=== PATIENT | male | born 1960 | race African-American/Black ===

== ENCOUNTER 2016-05-07 17:29 | Inpatient (IN) | payer MEDICAID ==
[~2016-05-07] VITALS: Ht 170.2 cm; Wt 92.1 kg
[~2016-05-07 17:29] MED LIST: AMLODIPINE BESY10 MG ORAL; AMLODIPINE BESYL5 MG ORAL; ASPIRIN EC81 MG ORAL; BACTRIM SINGLE S1 EA ORAL; CEPHALEXIN500 MG ORAL; CIPRO500 MG PO; CLINDAMYCIN HC300 MG ORAL; FLOMAX0.4 MG ORAL; HYDROCHLOROTHIA25 MG ORAL; HYDROCORTISON28.4 G2 TP; IBUPROFEN600 MG ORAL; KEFLEX500 MG ORAL; METRONIDAZOLE500 MG ORAL; PROSCAR5 MG PO; TERAZOSIN HCL10 MG PO; [UNRECOGNIZED DRUG - REMARK] PO; flomax
[2016-05-07 18:00] VITALS: BP 197/141
[2016-05-07] MEDS ORDERED: Norco 7.5mg/325mg tab ORAL ONE (18:15)
[2016-05-07] MEDS ORDERED: Bicillin LA 2,400,000 units IM ONE (18:30)
[2016-05-07] MEDS ORDERED: Morphine Sulfate 2mg/ml Inj IVP ONE (21:15)
[2016-05-07 21:16] VITALS: BP 188/127
[2016-05-07 21:17] LABS: BASOPHILS % (AUTO) 2.8 % (0.0-2.0); EOSINOPHILS % (AUTO) 1.8 % (0.0-3.0); LYMPHOCYTES % (AUTO) 20.6 % (20.0-45.0); MEAN CORPUSCULAR HEMOGLOBIN 25.2 PG (27.0-31.0); MEAN CORPUSCULAR VOLUME 81 FL (80-99); MEAN PLATELET VOLUME 7.5 FL (6.5-10.1); MONOCYTES % (AUTO) 9.2 % (1.0-10.0); NEUTROPHILS % (AUTO) 65.6 % (45.0-75.0); PLATELET COUNT 306 K/UL (150-450); RED CELL DISTRIBUTION WIDTH 14.1 % (11.6-14.8); WHITE BLOOD COUNT 13.1 K/UL (4.8-10.8)
[2016-05-07 21:37] LABS: GLOMERULAR FILTRATION RATE 41.9 mL/min (>60); POTASSIUM 3.3 mEQ/L (3.4-4.9); TOTAL PROTEIN 8.4 g/dL (6.6-8.7)
[2016-05-07] MEDS ORDERED: Labetalol 5mg/ml 20ml vial IV ONE (21:45)
--- NOTE | 2016-05-07 21:49 | Emergency Room Report ---
History of Present Illness General Chief Complaint: Toothache Source: Patient (BASIA CUMMINGS) Present Illness HPI The patient is a 56-year-old male presenting with left lower toothache which began 2 days prior. The patient states that he has had multiple dental infections in the past and this feels similar. It is described as a 10 out of 10 dull ache and radiates to the L jaw. Pain worse with chewing. The patient has taken Motrin at home without any relief. Patient denies any other symptoms including N, V, F, chills, [place], dizziness, blurred vision, CP, SOB, abd pain The patient also admits to hypertension but has not been taking his medications for the past week because he ran out. Patient unsure of which medications he is taking (BASIA CUMMINGS) Allergies: Coded Allergies: No Known Allergies (Unverified , 12/23/11) Patient History Past Medical History: see triage record, HTN Pertinent Family History: none Reviewed Nursing Documentation: PMH: Agreed, PSxH: Agreed (BASIA CUMMINGS) Social History: Reports: smoking (Sandoval Washburn M.D.) Nursing Documentation-PMH Past Medical History: No History, Except For Hx Cardiac Problems: No Hx Hypertension: Yes Hx Pacemaker: No Hx Asthma: No Hx COPD: No Hx Diabetes: No Hx Cancer: No Hx Gastrointestinal Problems: No - Prostate problem - RESOLVED Hx Dialysis: No Hx Neurological Problems: No Hx Cerebrovascular Accident: No Hx Seizures: No (BASIA CUMMINGS) Review of Systems All Other Systems: negative except mentioned in HPI (BASIA CUMMINGS) Physical Exam Vital Signs Date Time Temp Pulse Resp B/P Pulse Ox O2 Delivery O2 Flow Rate FiO2 05/07/16 17:48 97.9 102 18 221/150 99 Room Air Sp02 EP Interpretation: reviewed, normal General Appearance: alert, GCS 15, non-toxic, mild distress Head: normocephalic, atraumatic Eyes: bilateral eye PERRL, bilateral eye normal inspection ENT: normal pharynx, no angioedema, normal voice, uvula midline, moist mucus membranes, other - Poor dentition. TTP over L lower premolar. No surrounding erythema. No fluctuance. No facial edema Neck: full range of motion, supple/symm/no masses Respiratory: chest non-tender, lungs clear, normal breath sounds, speaking full sentences Cardiovascular #1: no edema, normal capillary refill, tachycardia Cardiovascular #2: 2+ carotid (R), 2+ carotid (L), 2+ radial (R), 2+ radial (L) , 2+ dorsalis pedis (R), 2+ dorsalis pedis (L) Gastrointestinal: normal bowel sounds, non tender, soft, non-distended, no guarding, no rebound Musculoskeletal: back normal, gait/station normal, normal range of motion, non- tender Neurologic: alert, oriented x3, responsive, motor strength/tone normal, sensory intact, speech normal Psychiatric: judgement/insight normal, memory normal, mood/affect normal, no suicidal/homicidal ideation Skin: normal color, no rash, warm/dry, well hydrated Lymphatic: no adenopathy (BASIA CUMMINSG P.AElyssa) Medical Decision Making PA Attestation Dr. Washburn is my supervising physician. Patient management was discussed with my supervising physician (BASIA CUMMINGS P.AElyssa) Diagnostic Impression: Primary Impression: Hypertensive urgency Additional Impressions: Renal insufficiency Tooth ache ER Course The patient is a 56-year-old male presenting with left lower toothache which began 2 days prior. Pt also noncompliant with HTN medication Diagnoses considered but not limited to: Dental caries, dental abscess, toothache, gingivitis, HTN urgency/emergency, ACS PE: Significant HTN and patient also tachycardic. Mild distress. Poor dentition. TTP over L lower premolar. No surrounding erythema. No fluctuance. No facial edema The patient has a BP of 220/150. The patient is given a total of 0.2 mg of clonidine and blood pressure is still 210/140. Pt given hydralazine without significant reduction of BP. Pt now given Labetaolol and will be admitted for HTN emergency. Labs: CBC: no anemia. Mild leukocytosis CMP: Cr elevated to 2.0. Otherwise unremarkable. CKMB and Troponin WNL EKG shows inferolateral ischemia. Pt initially given norco for pain with some relief. Pain has returned and pt given morphine. Pt will be admitted in stable yet serious condition. Dr. Washburn has discussed case with admitting physician. Laboratory Tests Test 05/07/16 21:00 05/08/16 06:40 White Blood Count 13.1 K/UL (4.8-10.8) H 13.3 K/UL (4.8-10.8) H Red Blood Count 5.70 M/UL (4.70-6.10) 5.81 M/UL (4.70-6.10) Hemoglobin 14.3 G/DL (14.2-18.0) 14.7 G/DL (14.2-18.0) Hematocrit 46.2 % (42.0-52.0) 45.6 % (42.0-52.0) Mean Corpuscular Volume 81 FL (80-99) 78 FL (80-99) L Mean Corpuscular Hemoglobin 25.2 PG (27.0-31.0) L 25.3 PG (27.0-31.0) L Mean Corpuscular Hemoglobin Concent 31.0 G/DL (32.0-36.0) L 32.3 G/DL (32.0-36.0) Red Cell Distribution Width 14.1 % (11.6-14.8) 13.9 % (11.6-14.8) Platelet Count 306 K/UL (150-450) 343 K/UL (150-450) Mean Platelet Volume 7.5 FL (6.5-10.1) 7.0 FL (6.5-10.1) Neutrophils (%) (Auto) 65.6 % (45.0-75.0) 73.3 % (45.0-75.0) Lymphocytes (%) (Auto) 20.6 % (20.0-45.0) 14.5 % (20.0-45.0) L Monocytes (%) (Auto) 9.2 % (1.0-10.0) 9.6 % (1.0-10.0) Eosinophils (%) (Auto) 1.8 % (0.0-3.0) 0.2 % (0.0-3.0) Basophils (%) (Auto) 2.8 % (0.0-2.0) H 2.4 % (0.0-2.0) H Sodium Level 139 mEQ/L (135-145) Potassium Level 3.3 mEQ/L (3.4-4.9) L Chloride Level 96 mEQ/L (98-107) L Carbon Dioxide Level 29 mEQ/L (20-30) Anion Gap 14 (5-15) Blood Urea Nitrogen 16 mg/dL (7-23) Creatinine 2.0 mg/dL (0.7-1.2) H Estimate Glomerular Filtration Rate 41.9 mL/min (>60) Glucose Level 107 mg/dL (74-106) H Calcium Level 9.0 mg/dL (8.6-10.2) Total Bilirubin 0.3 mg/dL (0.0-1.2) Aspartate Amino Transferase (AST) 15 U/L (5-40) Alanine Aminotransferase (ALT) 15 U/L (3-41) Alkaline Phosphatase 84 U/L (40-129) Total Creatine Kinase 263 U/L (38-174) H Creatine Kinase MB 3.0 ng/mL (< 6.7) Creatine Kinase MB Relative Index 1.1 Troponin I < 0.30 ng/mL (<=0.30) < 0.30 ng/mL (<=0.30) Total Protein 8.4 g/dL (6.6-8.7) Albumin 4.2 g/dL (3.5-5.2) Globulin 4.2 g/dL Albumin/Globulin Ratio 1.0 (1.0-2.7) Prothrombin Time 10.7 SEC (9.30-11.50) Prothrombin Time INR 1.1 (0.9-1.1) PTT 31 SEC (23-33) C-Reactive Protein, Quantitative 3.4 mg/dL (< 0.5) H Triglycerides Level 141 mg/dL (< 150) Cholesterol Level 252 mg/dL (< 200) H LDL Cholesterol 178 mg/dL (60-99) H HDL Cholesterol 46 mg/dL (> 60) Cholesterol/HDL Ratio 5.5 (3.3-4.4) H Thyroid Stimulating Hormone (TSH) 0.831 uIU/mL (0.300-4.500) Lab Results Impression CBC: no anemia. Mild leukocytosis CMP: Cr elevated to 2.0. Otherwise unremarkable. CKMB and Troponin WNL (BASIA CUMMINGS.Micky.) ER Course Please see the history and physical by Mr. Cummings. The patient was examined by me. We discussed this patient's treatment. The tooth ache is better, however, the blood pressure is critically high. Patient with hypertensive urgency needing to have urgent control of blood pressure. Labs with renal insufficiency. I reviewed the x-ray and agree with MrElyssa Cummings's impression - large bulla RUL. Admit telemetry Dr. Mane. Patient continued to need aggressive treatment of BP in ED (see my orders). Laboratory Tests Test 05/07/16 21:00 White Blood Count 13.1 K/UL (4.8-10.8) H Red Blood Count 5.70 M/UL (4.70-6.10) Hemoglobin 14.3 G/DL (14.2-18.0) Hematocrit 46.2 % (42.0-52.0) Mean Corpuscular Volume 81 FL (80-99) Mean Corpuscular Hemoglobin 25.2 PG (27.0-31.0) L Mean Corpuscular Hemoglobin Concent 31.0 G/DL (32.0-36.0) L Red Cell Distribution Width 14.1 % (11.6-14.8) Platelet Count 306 K/UL (150-450) Mean Platelet Volume 7.5 FL (6.5-10.1) Neutrophils (%) (Auto) 65.6 % (45.0-75.0) Lymphocytes (%) (Auto) 20.6 % (20.0-45.0) Monocytes (%) (Auto) 9.2 % (1.0-10.0) Eosinophils (%) (Auto) 1.8 % (0.0-3.0) Basophils (%) (Auto) 2.8 % (0.0-2.0) H Sodium Level 139 mEQ/L (135-145) Potassium Level 3.3 mEQ/L (3.4-4.9) L Chloride Level 96 mEQ/L (98-107) L Carbon Dioxide Level 29 mEQ/L (20-30) Anion Gap 14 (5-15) Blood Urea Nitrogen 16 mg/dL (7-23) Creatinine 2.0 mg/dL (0.7-1.2) H Estimate Glomerular Filtration Rate 41.9 mL/min (>60) Glucose Level 107 mg/dL (74-106) H Calcium Level 9.0 mg/dL (8.6-10.2) Total Bilirubin 0.3 mg/dL (0.0-1.2) Aspartate Amino Transferase (AST) 15 U/L (5-40) Alanine Aminotransferase (ALT) 15 U/L (3-41) Alkaline Phosphatase 84 U/L (40-129) Total Creatine Kinase 263 U/L (38-174) H Creatine Kinase MB 3.0 ng/mL (< 6.7) Creatine Kinase MB Relative Index 1.1 Troponin I < 0.30 ng/mL (<=0.30) Total Protein 8.4 g/dL (6.6-8.7) Albumin 4.2 g/dL (3.5-5.2) Globulin 4.2 g/dL Albumin/Globulin Ratio 1.0 (1.0-2.7) (Sandoval Washburn M.D.) EKG Diagnostic Results Rate: normal - 92 Rhythm: NSR ST Segments: other - R atrial enlargement with inferiolateral ischemia ASA given to the pt in ED: No PA Scribe Text EKG was reviewed and read with my supervising physician. There is atrial enlargement with inferolateral ischemia. (BASIA CUMMINGS P.Selina) Chest X-Ray Diagnostic Results EP Interpretation: Yes Findings: no consolidation, no effusion, no pneumothorax Number of Views: 1 PA Scribe Text Large bullae right upper lobe Left upper lobe scar versus prominent pulmonary branch Nonspecific increased interstitial markings both lung bases, most likely chronic in setting of COPD. Acute interstitial infiltrates not excludable. Probable chronic hypertensive change of the thoracic aorta (BASIA CUMMINGS P.A.) Last Vital Signs Date Time Temp Pulse Resp B/P Pulse Ox O2 Delivery O2 Flow Rate FiO2 05/07/16 21:16 98.0 96 29 188/127 98 Room Air Status: improved (ABSIA CUMMINGS P.A.) Last Vital Signs Date Time Temp Pulse Resp B/P Pulse Ox O2 Delivery O2 Flow Rate FiO2 05/07/16 23:52 85 25 133/92 99 Room Air 05/07/16 23:26 98.0 Status: improved (Sandoval Washburn M.D.) Disposition: ADMITTED INPATIENT Condition: Serious Referrals: HARJINDER KWAN,REFERRING (PCP) BASIA CUMMINGS May 07, 2016 21:49 Sandoval Washburn M.D. May 07, 2016 21:51
[2016-05-07 22:57] VITALS: BP 181/127
[2016-05-07] MEDS ORDERED: DuoNeb 0.5-3(2.5)mg/3ml neb HHN PRN (23:00)
[2016-05-07] MEDS ORDERED: Labetalol 5mg/ml 20ml vial IV PRN (23:00)
[2016-05-07] MEDS ORDERED: Miralax 17gm pkt ORAL PRN (23:00)
[2016-05-07] MEDS ORDERED: Nitroglycerin Subl 0.4mg tab (Bottle Of 25) SL PRN (23:00)
[2016-05-07] MEDS ORDERED: Diltiazem 25mg/5ml IV PRN (23:00)
[2016-05-07] MEDS ORDERED: Enalaprilat 2.5mg/2ml Inj IV PRN (23:00)
[2016-05-07 23:12] LABS: TROPONIN I < 0.30 ng/mL (<=0.30)
[2016-05-07 23:52] VITALS: BP 133/92
[2016-05-08] MEDS: Cephalexin 500mg cap ORAL SCH ×3 (00:59→11:05)
[2016-05-08 04:10] VITALS: BP 162/124
[2016-05-08] MEDS ORDERED: Morphine Sulfate 2mg/ml Inj IVP PRN (06:30)
[2016-05-08 08:28] VITALS: BP 149/109
[2016-05-08 08:56] LABS: BASOPHILS % (AUTO) 2.4 % (0.0-2.0); EOSINOPHILS % (AUTO) 0.2 % (0.0-3.0); LYMPHOCYTES % (AUTO) 14.5 % (20.0-45.0); MEAN CORPUSCULAR HEMOGLOBIN 25.3 PG (27.0-31.0); MEAN CORPUSCULAR HGB CONC 32.3 G/DL (32.0-36.0); MEAN CORPUSCULAR VOLUME 78 FL (80-99); MONOCYTES % (AUTO) 9.6 % (1.0-10.0); NEUTROPHILS % (AUTO) 73.3 % (45.0-75.0); PLATELET COUNT 343 K/UL (150-450); RED BLOOD COUNT 5.81 M/UL (4.70-6.10); RED CELL DISTRIBUTION WIDTH 13.9 % (11.6-14.8); WHITE BLOOD COUNT 13.3 K/UL (4.8-10.8)
[2016-05-08] MEDS ORDERED: Heparin 5000 units/ml inj SUBQ SCH (09:00)
[2016-05-08 09:08] LABS: INR 1.1 (0.9-1.1); PROTHROMBIN TIME 10.7 SEC (9.30-11.50)
[2016-05-08 09:14] LABS: TROPONIN I < 0.30 ng/mL (<=0.30)
[2016-05-08 09:18] LABS: CHOLESTEROL/HDL RATIO 5.5 (3.3-4.4); CRP QUANT 3.4 mg/dL (< 0.5)
[2016-05-08 09:19] LABS: THYROID STIMULATING HORMONE 0.831 uIU/mL (0.300-4.500)
[2016-05-08] MEDS: Clindamycin 150mg cap ORAL SCH ×2 (09:19→12:27)
[2016-05-08 11:51] VITALS: BP 161/99
--- NOTE | 2016-05-08 12:06 | Diagnostic Imaging Report ---
Indications: Chest pain Technique: Portable AP chest Findings: Comparison: None A cluster of circumscribed lucencies occupies much of the right upper lobe. Linear density left upper lobe. Increased interstitial markings both lower lungs. Cardiac silhouette partially obscured, probably normal in size. Pulmonary vasculature partially obscured. No pleural abnormalities. Aortic arch elongated. IMPRESSION: Large bullae right upper lobe Left upper lobe scar versus prominent pulmonary branch Nonspecific increased interstitial markings both lung bases, most likely chronic in setting of COPD. Acute interstitial infiltrates not excludable. Probable chronic hypertensive change of the thoracic aorta
--- NOTE | 2016-05-08 13:14 | History and Physical ---
History of Present Illness General Date patient seen: May 08, 2016 Reason for Hospitalization: Toothache Present Illness HPI 56-year-old male with hx of HTN, noncompliant presenting with left lower toothache which began 2 days prior. The patient has also hypertension but has not been taking his medications for the past week because he ran out. Pts bp was 220 in ER and is admitted to telemetry for hypertensive emergency. Allergies: Coded Allergies: No Known Allergies (Unverified , 12/23/11) Medication History Scheduled Amlodipine Besylate* (Amlodipine Besylate*), 10 MG ORAL DAILY, (Reported) Amlodipine Besylate* (Amlodipine Besylate*), 10 MG ORAL DAILY Aspirin Ec* (Aspirin Ec*), 81 MG ORAL DAILY, (Reported) Cephalexin* (Keflex*), 500 MG ORAL Q6H Clindamycin Hcl (Clindamycin Hcl), 300 MG ORAL THREE TIMES A DAY Hydrochlorothiazide* (Hydrochlorothiazide*), 25 MG ORAL DAILY Hydrocortisone/Aloe Vera (Hydrocortisone Plus 1% Cream), 28.4 GM TP TID Metronidazole* (Flagyl*), 500 MG ORAL THREE TIMES A DAY Patient History Healthcare decision maker Resuscitation status Full Code Advanced Directive on File Past Medical/Surgical History Past Medical/Surgical History: (1) Hypertension (2) Tooth ache Review of Systems All Other Systems: negative except mentioned in HPI Physical Exam General Appearance: WD/WN Lines, tubes and drains: peripheral, central line HEENT: normocephalic, atraumatic Neck: non-tender, normal alignment Respiratory/Chest: chest wall non-tender, lungs clear Cardiovascular/Chest: normal peripheral pulses, normal rate Abdomen: normal bowel sounds, non tender Last 24 Hour Vital Signs Date Time Temp Pulse Resp B/P Pulse Ox O2 Delivery O2 Flow Rate FiO2 05/08/16 11:51 97.5 98 18 161/99 97 Room Air 05/08/16 08:28 90 149/109 05/08/16 08:28 97.7 90 18 149/109 97 Room Air 05/08/16 08:00 96 05/08/16 07:30 90 18 Room Air 21 05/08/16 04:10 98.1 95 21 162/124 97 Room Air 05/08/16 04:00 90 05/07/16 23:52 85 25 133/92 99 Room Air 05/07/16 23:26 98.0 92 19 160/112 97 Room Air 05/07/16 23:25 160/112 05/07/16 22:57 98.0 92 19 181/127 97 Room Air 05/07/16 22:40 83 192/121 05/07/16 21:48 98.0 05/07/16 21:16 98.0 96 29 188/127 98 Room Air 05/07/16 21:08 190/129 05/07/16 19:54 222/138 05/07/16 19:25 98.0 05/07/16 18:24 197/141 05/07/16 18:00 98.0 101 17 197/141 97 Room Air 05/07/16 17:48 97.9 102 18 221/150 99 Room Air Laboratory Tests Test 05/07/16 21:00 05/08/16 06:40 White Blood Count 13.1 K/UL (4.8-10.8) H 13.3 K/UL (4.8-10.8) H Red Blood Count 5.70 M/UL (4.70-6.10) 5.81 M/UL (4.70-6.10) Hemoglobin 14.3 G/DL (14.2-18.0) 14.7 G/DL (14.2-18.0) Hematocrit 46.2 % (42.0-52.0) 45.6 % (42.0-52.0) Mean Corpuscular Volume 81 FL (80-99) 78 FL (80-99) L Mean Corpuscular Hemoglobin 25.2 PG (27.0-31.0) L 25.3 PG (27.0-31.0) L Mean Corpuscular Hemoglobin Concent 31.0 G/DL (32.0-36.0) L 32.3 G/DL (32.0-36.0) Red Cell Distribution Width 14.1 % (11.6-14.8) 13.9 % (11.6-14.8) Platelet Count 306 K/UL (150-450) 343 K/UL (150-450) Mean Platelet Volume 7.5 FL (6.5-10.1) 7.0 FL (6.5-10.1) Neutrophils (%) (Auto) 65.6 % (45.0-75.0) 73.3 % (45.0-75.0) Lymphocytes (%) (Auto) 20.6 % (20.0-45.0) 14.5 % (20.0-45.0) L Monocytes (%) (Auto) 9.2 % (1.0-10.0) 9.6 % (1.0-10.0) Eosinophils (%) (Auto) 1.8 % (0.0-3.0) 0.2 % (0.0-3.0) Basophils (%) (Auto) 2.8 % (0.0-2.0) H 2.4 % (0.0-2.0) H Sodium Level 139 mEQ/L (135-145) Potassium Level 3.3 mEQ/L (3.4-4.9) L Chloride Level 96 mEQ/L (98-107) L Carbon Dioxide Level 29 mEQ/L (20-30) Anion Gap 14 (5-15) Blood Urea Nitrogen 16 mg/dL (7-23) Creatinine 2.0 mg/dL (0.7-1.2) H Estimat Glomerular Filtration Rate 41.9 mL/min (>60) Glucose Level 107 mg/dL (74-106) H Calcium Level 9.0 mg/dL (8.6-10.2) Total Bilirubin 0.3 mg/dL (0.0-1.2) Aspartate Amino Transf (AST/SGOT) 15 U/L (5-40) Alanine Aminotransferase (ALT/SGPT) 15 U/L (3-41) Alkaline Phosphatase 84 U/L (40-129) Total Creatine Kinase 263 U/L (38-174) H Creatine Kinase MB 3.0 ng/mL (< 6.7) Creatine Kinase MB Relative Index 1.1 Troponin I < 0.30 ng/mL (<=0.30) < 0.30 ng/mL (<=0.30) Total Protein 8.4 g/dL (6.6-8.7) Albumin 4.2 g/dL (3.5-5.2) Globulin 4.2 g/dL Albumin/Globulin Ratio 1.0 (1.0-2.7) Prothrombin Time 10.7 SEC (9.30-11.50) Prothromb Time International Ratio 1.1 (0.9-1.1) Activated Partial Thromboplast Time 31 SEC (23-33) C-Reactive Protein, Quantitative 3.4 mg/dL (< 0.5) H Triglycerides Level 141 mg/dL (< 150) Cholesterol Level 252 mg/dL (< 200) H LDL Cholesterol 178 mg/dL (60-99) H HDL Cholesterol 46 mg/dL (> 60) Cholesterol/HDL Ratio 5.5 (3.3-4.4) H Thyroid Stimulating Hormone (TSH) 0.831 uIU/mL (0.300-4.500) Height (Feet): 5 Height (Inches): 7.00 Weight (Pounds): 203 Medications Current Medications Medications (Trade) Dose Ordered Sig/Kathleen Route PRN Reason Start Time Stop Time Status Last Admin Dose Admin Acetaminophen (Tylenol) 650 mg Q4H PRN ORAL FEVER 05/07/16 23:00 06/06/16 22:59 Albuterol/ Ipratropium (DuoNeb 0.5-3(2.5)mg/3ml) 3 ml EVERY 4 HOURS PRN HHN Shortness of Breath 05/07/16 23:00 05/12/16 22:59 Amlodipine Besylate (Norvasc) 10 mg DAILY ORAL 05/08/16 09:00 06/07/16 08:59 05/08/16 08:28 Cephalexin (Keflex) 500 mg Q6H ORAL 05/07/16 23:00 05/14/16 22:59 05/08/16 11:05 Clindamycin HCl (Cleocin) 300 mg THREE TIMES A DAY ORAL 05/08/16 09:00 05/15/16 08:59 05/08/16 12:27 Diltiazem HCl (Cardizem) 10 mg EVERY HOUR PRN IV heart rate more than 120, 05/07/16 23:00 06/06/16 22:59 Enalaprilat (Vasotec) 2.5 mg EVERY 6 HOURS PRN IV sbp more than 160 05/07/16 23:00 06/06/16 22:59 Heparin Sodium (Porcine) (Heparin 5000 units/ml) 5,000 units EVERY 12 HOURS SUBQ 05/08/16 09:00 06/07/16 08:59 05/08/16 08:30 Hydrochlorothiazide (Hydrodiuril) 25 mg DAILY ORAL 05/08/16 09:00 06/07/16 08:59 05/08/16 08:27 Labetalol HCl (Normodyne) 20 mg EVERY HOUR PRN IV sbp more than 160 05/07/16 23:00 06/06/16 22:59 Morphine Sulfate (Morphine Sulfate) 2 mg Q4H PRN IVP Severe Breakthru Pain (>7) 05/08/16 06:30 05/15/16 06:29 Nitroglycerin (Ntg) 0.4 mg Q5M PRN SL Prn Chest Pain 05/07/16 23:00 06/06/16 22:59 Ondansetron HCl (Zofran) 4 mg Q6H PRN IVP Nausea & Vomiting 05/07/16 23:00 06/06/16 22:59 Pantoprazole (Protonix) 40 mg DAILY ORAL 05/08/16 09:00 06/07/16 08:59 05/08/16 08:27 Polyethylene Glycol (Miralax) 17 gm DAILYPRN PRN ORAL Constipation 05/07/16 23:00 06/06/16 22:59 Temazepam (Restoril) 15 mg HSPRN PRN ORAL Insomnia 05/07/16 23:00 05/14/16 22:59 Assessment/Plan Problem List: (1) Hypertensive urgency ICD Codes: I16.0 - Hypertensive urgency SNOMED: 623057931 (2) Gingivitis ICD Codes: K05.10 - Chronic gingivitis, plaque induced SNOMED: 84501752 (3) Tooth ache ICD Codes: K08.89 - Other specified disorders of teeth and supporting structures SNOMED: 02971115 Assessment/Plan Antibiotics bp monitoring bp is meanwhile better pt wants to go home JUNE BAZAN May 08, 2016 13:14
[2016-05-08] MEDS ORDERED: AUGMENTIN 875-1 EAC1 ORAL (13:29)
[2016-05-08] MEDS ORDERED: NORVASC10 MG ORAL (13:30)
[2016-05-08] MEDS ORDERED: METRONIDAZOLE500 MG ORAL (13:30)
[2016-05-08] MEDS ORDERED: HYDROCHLOROTHIA50 MG ORAL (13:31)
--- NOTE | 2016-05-08 13:37 | Cardiology Report ---
APPROVED REPORT EXAM: Two-dimensional and M-mode echocardiogram with Doppler and color Doppler. INDICATION Left Ventricular Function M-Mode DIMENSIONS IVSd1.5 (0.7-1.1cm)Left Atrium (MM)3.9 (1.6-4.0cm) LVDd4.1 (3.5-5.6cm)Aortic Root3.3 (2.0-3.7cm) PWd1.4 (0.7-1.1cm)Aortic Cusp Exc.1.8 (1.5-2.0cm) LVDs2.3 (2.5-4.0cm) PWs1.8 cm Technically difficult study due to poor acoustic windows. Study quality precludes accurate assessment of regional wall motion. Normal left ventricular chamber size, systolic function and wall motion. Left ventricular ejection fraction estimated to be 55 %. Mild left ventricular hypertrophy. No evidence of pericardial fat or effusion. All other cardiac chamber sizes are within normal limits. Mild focal aortic valve sclerosis with adequate cusp excursion. Mildly thickened mitral valve leaflets with normal excursion. Mild mitral annulus and aortic root calcification. Pulmonic valve not well visualized. Normal tricuspid valve structure. IVC dilated at 1.6cm with physiologic collapse. A color flow and spectral Doppler study was performed and revealed: No aortic regurgitation. Mild mitral regurgitation. Mitral diastolic velocities suggest reduced left ventricular relaxation (Grade I). Mild to moderate tricuspid regurgitation. Tricuspid systolic velocities suggests peak right ventricular systolic pressure of 35 mmHg, consistent with mild pulmonary hypertension.
--- NOTE | 2016-05-08 13:47 | Cardiology Report ---
APPROVED REPORT EKG Measurement Heart [id number] Normal sinus rhythm Right atrial enlargement Abnormal ECG
[2016-05-11] MEDS ORDERED: LIPITOR10 MG ORAL (10:30)
--- NOTE | 2016-05-11 10:37 | Discharge Summary ---
Discharge Summary Hospital Course Date of Admission May 07, 2016 at 22:18 Date of Discharge May 08, 2016 at 14:10 Admitting Diagnosis HTN urgency HPI Ruben Muniz is a 56 year old male who was admitted on May 07, 2016 at 22:18 for Hypertension Urgency Hospital Course dc summary #[id number] Discharge Medications New Medications: Atorvastatin Calcium* (Lipitor*) 10 Mg Tablet 10 MG ORAL BEDTIME, #30 TAB Continued Medications: Amlodipine Besylate (Norvasc) 10 Mg Tablet 10 MG ORAL DAILY, TAB Amoxicillin/Potassium Clav 875-125* (Augmentin 875-125 Tablet*) 1 Each Tablet 1 TAB ORAL TWICE A DAY for 10 Days, TAB Hydrochlorothiazide* (Hydrochlorothiazide*) 50 Mg Tablet 50 MG ORAL DAILY, TAB Metronidazole* (Flagyl*) 500 Mg Tablet 500 MG ORAL THREE TIMES A DAY for 10 Days, #21 TAB 0 Refills Discontinued Medications: Amlodipine Besylate* (Amlodipine Besylate*) 10 Mg Tablet 10 MG ORAL DAILY, TAB Amlodipine Besylate* (Amlodipine Besylate*) 10 Mg Tablet 10 MG ORAL DAILY, #60 TAB Aspirin Ec* (Aspirin Ec*) 81 Mg Tablet.dr 81 MG ORAL DAILY, TAB Cephalexin* (Keflex*) 500 Mg Capsule 500 MG ORAL Q6H, #28 CAP Clindamycin Hcl (Clindamycin Hcl) 300 Mg Capsule 300 MG ORAL THREE TIMES A DAY, #21 CAP Hydrochlorothiazide* (Hydrochlorothiazide*) 25 Mg Tablet 25 MG ORAL DAILY, #30 TAB Hydrocortisone/Aloe Vera (Hydrocortisone Plus 1% Cream) 28.4 Gm Cream..g. 28.4 GM TP TID for 10 Days, GM Metronidazole* (Flagyl*) 500 Mg Tablet 500 MG ORAL THREE TIMES A DAY, #21 TAB Discharge Condition Upon Discharge: stable Discharge Disposition Patient was discharged to Home () Discharge Diagnoses: Lan ([place])Herlinda NP May 11, 2016 10:37
--- NOTE | 2016-05-12 01:48 | Discharge Summary 2 SIG ---
DATE OF ADMISSION: 05/07/2016 DATE OF DISCHARGE: 05/08/2016 REASON FOR ADMISSION: 56-year-old male came to emergency room complaining of left lower side toothache, which started two days prior. The patient reported to have multiple dental infections in the past and felt that this was similar. He reported dull severe pain 10/10 radiating to the left jaw. Pain was worse with chewing. The patient was taking Motrin at home with no relief. The patient denied nausea, vomiting, fever, chills, headache, dizziness, blurred vision, chest pain, shortness of breath, or abdominal pain. The patient also admitted to history of hypertension, however, he was not taking his medications due to the fact, that he ran out of them. In the emergency room, blood pressure was 221/150. The patient was given hydralazine without significant reduction of blood pressure. Subsequently, he was given labetalol and admitted for hypertensive emergency. The patient had mild leukocytosis. No anemia. Creatinine was elevated to 2.0, otherwise unremarkable. Troponin and CK-MB were both within normal limits. EKG showed possible inferolateral ischemia. The patient also was given [place] for pain with some relief. ADMITTING DIAGNOSES: 1. Hypertensive urgency. 2. Toothache. 3. Renal insufficiency. HOSPITAL STAY: The patient admitted to telemetry floor. Antihypertensive regimen was adjusted. The patient on calcium channel sheri and diuretic. Diuretic dose increased. Potassium was replaced, initially 3.3. Lipid panel revealed elevated LDL and elevated total cholesterol. Started on statin, educated on low-fat cardiac low cholesterol diet. Echocardiogram revealed preserved ejection fraction of 55%, right ventricular systolic pressure of 35,consistent with mild pulmonary hypertension. evidence of mild left ventricular hypertrophy. Chest x-ray revealed right upper lobe large bulla as well as chronic obstructive pulmonary disease changes. Troponin x2 was negative. Blood pressure was improving with the current antihypertensive regimen. The patient noted to have poor dentition, left lower premolar tender to palpation; however, no surrounding erythema, no fluctuance, and no facial edema. No evidence of abscess. The patient placed on antibiotics for chronic gingivitis. Pain management provided. The patient wanted to go home and follow up with the primary doctor. Prescription provided for antihypertensive medication and antibiotic. Patient to follow up with the dentist. Due to rapid and unexpected improvement in patient condition, the patient was discharged in one day. DISCHARGE DIAGNOSES: 1. Hypertensive urgency, resolved. 2. Chronic gingivitis. 3. Renal insufficiency. 4. Noncompliance. 5. Hyperlipidemia. 6. Hypokalemia, replaced. 7. Mild pulmonary hypertension. 8. Chronic obstructive pulmonary disease. DISCHARGE MEDICATIONS: See medication reconciliation list. DISCHARGE INSTRUCTIONS: The patient discharged home and will follow up with the primary medical doctor and dentist. Jason Astorga M.D. I have been assigned to dictate discharge summary on this account and I was not involved in the patient's management. Herlinda VanessaNicholas H Noyes Memorial HospitalTamar NElyssaPElyssa DR: SIMONE JOB#: [id number] CC: CHAD
== END 2016-05-08 14:10 | disposition home or self-care (01) | DRG 199 ==
LOC: EMR 19:30 → 2E 22:18 → EDBEDREQ 23:03 → 2E 05-08 09:08
DX: I16.0 Hypertensive urgency (principal); I27.2 Other secondary pulmonary hypertension; K05.10 Chronic gingivitis, plaque induced; K08.89 Other specified disorders of teeth and supporting structures; N28.9 Disorder of kidney and ureter, unspecified; Z91.14 Patient's other noncompliance with medication regimen; E78.5 Hyperlipidemia, unspecified; E87.6 Hypokalemia; J44.9 Chronic obstructive pulmonary disease, unspecified
CPT/HCPCS: 36415; 71010; 80053; 80061; 82550; 82553; 84443; 84484; 85025; 85610; 85730; 86140; 93005; 93306; 94664

== ENCOUNTER 2016-06-30 00:46 | Emergency (ER) | payer MEDICAID, OTHER ==
[~2016-06-30] VITALS: Ht 170.2 cm; Wt 81.6 kg
[~2016-06-30 00:46] MED LIST changes: +AUGMENTIN 875-1 EAC1 ORAL; +HYDROCHLOROTHIA50 MG ORAL; +LIPITOR10 MG ORAL; +NORVASC10 MG ORAL
[2016-06-30] MEDS ORDERED: NORVASC10 MG ORAL (01:17)
[2016-06-30] MEDS ORDERED: HYDROCHLOROTHIA25 MG ORAL (01:17)
[2016-06-30 01:40] VITALS: BP 204/126
[2016-06-30 01:41] VITALS: BP 204/126
--- NOTE | 2016-06-30 23:04 | Emergency Room Report ---
History of Present Illness General Chief Complaint: General Complaint Source: Patient Present Illness HPI [id number] walk-in requesting refills for HTN meds, Norvasc and HCTZ. Hasnt taken in "a few days". PMD was switched. Denies headache, dizziness, chest pain, flank pain, abd pain. Feels well otherwise. Sitting in [place] playing video games on iphone. Doesnt look up from game to provide additional HPI. Allergies: Coded Allergies: No Known Allergies (Unverified , 12/23/11) Patient History Past Medical History: HTN Past Surgical History: none Pertinent Family History: none Social History: Denies: alcohol use, drug use, smoking Immunizations: UTD Reviewed Nursing Documentation: PMH: Agreed, PSxH: Agreed Nursing Documentation-PMH Hx Cardiac Problems: No Hx Hypertension: Yes Hx Pacemaker: No Hx Asthma: No Hx COPD: No Hx Diabetes: No Hx Cancer: No Hx Gastrointestinal Problems: No Hx Dialysis: No Hx Neurological Problems: No Hx Cerebrovascular Accident: No Hx Seizures: No Review of Systems All Other Systems: negative except mentioned in HPI Physical Exam Vital Signs Date Time Temp Pulse Resp B/P Pulse Ox O2 Delivery O2 Flow Rate FiO2 06/30/16 00:58 98.1 82 16 210/136 97 Room Air Sp02 EP Interpretation: reviewed, abnormal General Appearance: normal inspection, well appearing, no apparent distress, alert, GCS 15, non-toxic Head: normocephalic, atraumatic Eyes: bilateral eye EOMI, bilateral eye PERRL ENT: normal ENT inspection, hearing grossly normal, normal voice Neck: normal inspection, full range of motion, supple, no bony tend Respiratory: normal inspection, lungs clear, normal breath sounds, no respiratory distress, no retraction, no wheezing Cardiovascular #1: regular rate, rhythm, no edema Gastrointestinal: normal inspection, normal bowel sounds, non tender, soft, no guarding, no hernia Genitourinary: no CVA tenderness Musculoskeletal: normal inspection, back normal, normal range of motion, Ezequiel' s Sign negative Neurologic: normal inspection, alert, oriented x3, responsive, clinical cytogeneticist scientist III-XII nml as tested, speech normal Psychiatric: normal inspection, judgement/insight normal, mood/affect normal Skin: normal inspection, normal color, no rash Lymphatic: normal inspection Medical Decision Making Diagnostic Impression: Primary Impression: Medication refill Additional Impression: Hypertension Qualified Codes: I10 - Essential (primary) hypertension ER Course HTN med refill request VS notable for elevated BP Patient asymptomatic Playing video games in chair. No acute distress Vasculature likely used to running a high BP Per recent research, would be disservice to patient to reduce the BP to "have a better number." Meds refilled for 1 month Advised to find new PMD within that time period DC home Last Vital Signs Date Time Temp Pulse Resp B/P Pulse Ox O2 Delivery O2 Flow Rate FiO2 06/30/16 01:41 98.1 71 16 204/126 97 Room Air Status: improved Disposition: HOME, SELF-CARE Condition: Improved Scripts Amlodipine Besylate (Norvasc) 10 Mg Tablet 10 MG ORAL DAILY for 30 Days, #30 TAB 1 Refill Prov: YOSSI PHAN M.D. 06/30/16 Hydrochlorothiazide* (HYDROCHLOROTHIAZIDE*) 25 Mg Tablet 50 MG ORAL DAILY for 30 Days, #30 TAB 1 Refill Prov: YOSSI PHAN M.D. 06/30/16 Referrals: [facility],REFERROSSY (PCP) Patient Instructions: Hypertension, [id number] YOSSI PHAN M.D. Jun 30, 2016 23:04
== END 2016-06-30 01:40 | disposition home or self-care (01) ==
LOC: EMR 01:30
DX: I10 Essential (primary) hypertension (principal); Z76.0 Encounter for issue of repeat prescription
CPT/HCPCS: 99284

== ENCOUNTER 2016-08-22 02:16 | Emergency (ER) | payer MEDICAID, OTHER ==
[~2016-08-22] VITALS: Ht 170.2 cm; Wt 79.4 kg
[2016-08-22 02:35] VITALS: BP 200/136
[2016-08-22] MEDS ORDERED: Bactrim DS (160mg/800mg) tab ORAL ONE (02:45)
[2016-08-22] MEDS ORDERED: BACTRIM DS TAB1 EAC1 ORAL (02:51)
[2016-08-22] MEDS ORDERED: HYDROCHLOROTHIA25 MG ORAL (02:51)
[2016-08-22] MEDS ORDERED: NORVASC10 MG ORAL (02:51)
--- NOTE | 2016-08-22 02:52 | Emergency Room Report ---
History of Present Illness General Chief Complaint: General Complaint Source: Patient Present Illness HPI Is a 56-year-old male with history hypertension. He has a history of noncompliance with medication. Supposedly, he is taking his Norvasc and hydrochlorothiazide daily. He said he does not have a doctor yet and the last time he was here was couple months ago. He still has medication left over he presents with chief complaint of blister to the right foot. Onset tonight. No fever chills without nausea no vomiting. Pain is 8/10. Worse with walking. No injury. Allergies: Coded Allergies: No Known Allergies (Unverified , 12/23/11) Patient History Past Medical History: see triage record, old chart reviewed, HTN Past Surgical History: other Pertinent Family History: none Social History: Denies: drug use Immunizations: other Reviewed Nursing Documentation: PMH: Agreed, PSxH: Agreed Nursing Documentation-PMH Hx Cardiac Problems: No Hx Hypertension: Yes Hx Pacemaker: No Hx Asthma: No Hx COPD: No Hx Diabetes: No Hx Cancer: No Hx Gastrointestinal Problems: No Hx Dialysis: No Hx Neurological Problems: No Hx Cerebrovascular Accident: No Hx Seizures: No Review of Systems Eye: Denies: blurred vision, eye pain ENT: Denies: ear pain, nose congestion, throat swelling Respiratory: Denies: cough, shortness of breath Cardiovascular: Denies: chest pain, palpitations Gastrointestinal: Denies: abdominal pain, diarrhea, nausea, vomiting Musculoskeletal: Denies: back pain, joint pain Skin: Denies: rash Neurological: Denies: headache, numbness Endocrine: Denies: increased thirst, increased urine Hematologic/Lymphatic: Denies: easy bruising All Other Systems: negative except mentioned in HPI Physical Exam Vital Signs Date Time Temp Pulse Resp B/P Pulse Ox O2 Delivery O2 Flow Rate FiO2 08/22/16 02:18 98.1 90 16 200/136 94 Room Air vitals with hypertension Sp02 EP Interpretation: reviewed, normal General Appearance: well appearing, no apparent distress, alert Head: normocephalic, atraumatic Eyes: bilateral eye EOMI, bilateral eye PERRL ENT: hearing grossly normal, normal pharynx Neck: full range of motion, supple, no meningismus Respiratory: chest non-tender, lungs clear, normal breath sounds Cardiovascular #1: regular rate, rhythm, no murmur Gastrointestinal: normal bowel sounds, non tender, no mass, no organomegaly, no bruit, non-distended Musculoskeletal: back normal, gait/station normal, normal range of motion, other - Right foot: He has severe onychomycosis to all the nails. His right great toe show a paronychia. Tender to palpation. Sensation normal. Psychiatric: mood/affect normal Skin: warm/dry Procedures Incision and Drainage Incision and Drainage : Consent: Verbal Site: Right great toe Blade Size: 11 I & D Procedure: betadine prep Wound Location: lower extremity Patient Tolerated: Well Complications: None Progress His foot and toe clean with Betadine solution. Using 11 blade scalpel and run along the base of the nail. There was moderate amount of pus expressed. Patient tolerated procedure without a problem. Area irrigated. Medical Decision Making Diagnostic Impression: Primary Impression: Hypertension Qualified Codes: I10 - Essential (primary) hypertension Additional Impressions: Paronychia of great toe, right Onychomycosis Medication refill ER Course Patient presents with noncompliance with his blood pressure. Questionable drug abuse. Patient denied it. He has a paronychia was I&D. Probably secondary to his medical mycosis. His toenail is very thick and yellow. No evidence of felon. We'll discharge home. We'll put on antibiotics. Will refill blood pressure medication. Last Vital Signs Date Time Temp Pulse Resp B/P Pulse Ox O2 Delivery O2 Flow Rate FiO2 08/22/16 02:18 98.1 90 16 200/136 94 Room Air Status: improved Disposition: HOME, SELF-CARE Condition: Stable Scripts Trimethoprim/Sulfamethoxazole 160/800* (BACTRIM DS TABLET*) 1 Each Tablet 1 TAB ORAL Q12H, #14 TAB 0 Refills Prov: HECTOR SOUTH M.D. 08/22/16 Hydrochlorothiazide* (HYDROCHLOROTHIAZIDE*) 25 Mg Tablet 25 MG ORAL DAILY, #90 TAB Prov: HECTOR SOUTH M.D. 08/22/16 Amlodipine Besylate (Norvasc) 10 Mg Tablet 10 MG ORAL DAILY, #90 TAB Prov: HECTOR SOUTH M.D. 08/22/16 Additional Instructions: Followup with your DrElyssa in 7 days for recheck. Return if symptom worsen. Take your blood pressure medication. HECTOR SOUTH M.D. Aug 22, 2016 02:52
[2016-08-22 03:15] VITALS: BP 150/99
== END 2016-08-22 03:15 | disposition home or self-care (01) ==
LOC: EMR 02:53
DX: I10 Essential (primary) hypertension (principal); L03.031 Cellulitis of right toe; B35.1 Tinea unguium; Z76.0 Encounter for issue of repeat prescription
CPT/HCPCS: 10060

== ENCOUNTER 2017-01-05 15:42 | Emergency (ER) | payer MEDICAID, OTHER ==
[~2017-01-05] VITALS: Ht 170.2 cm; Wt 90.7 kg
[~2017-01-05 15:42] MED LIST changes: +BACTRIM DS TAB1 EAC1 ORAL
[2017-01-05] MEDS ORDERED: Ketorolac 30mg Inj IM ONE (16:00)
[2017-01-05 16:05] VITALS: BP_SYST 190; BP_SYST 202; BP_DIAS 105; BP_DIAS 123
[2017-01-05] MEDS ORDERED: CYCLOBENZAPRINE10 MG ORAL (16:49)
[2017-01-05] MEDS ORDERED: IBUPROFEN600 MG ORAL (16:49)
[2017-01-05 17:10] VITALS: BP 202/123
--- NOTE | 2017-01-05 18:14 | Emergency Room Report ---
History of Present Illness General Chief Complaint: Pain Source: Patient Present Illness HPI 56-year-old male presents ED complaining of pain in his right shoulder x2 days states he woke up with the pain. Patient notes pain between his neck and his right shoulder. Tight. 8 out 10, nonradiating. Denies any other injuries. Denies neck stiffness. Denies fevers or chills. Denies headache. Notes full range of motion in his right shoulder. No other aggravating relieving factors. Denies any other associated symptom Allergies: Coded Allergies: No Known Allergies (Unverified , 12/23/11) Patient History Past Medical History: HTN Past Surgical History: none Pertinent Family History: none Social History: Denies: smoking, alcohol use, drug use Immunizations: UTD Reviewed Nursing Documentation: PMH: Agreed, PSxH: Agreed Nursing Documentation-PMH Past Medical History: No History, Except For Hx Cardiac Problems: No Hx Hypertension: Yes Hx Pacemaker: No Hx Asthma: No Hx COPD: No Hx Diabetes: No Hx Cancer: No Hx Gastrointestinal Problems: No Hx Dialysis: No Hx Neurological Problems: No Hx Cerebrovascular Accident: No Hx Seizures: No Review of Systems All Other Systems: negative except mentioned in HPI Physical Exam Vital Signs Date Time Temp Pulse Resp B/P (MAP) Pulse Ox O2 Delivery O2 Flow Rate FiO2 01/05/17 15:45 97.7 103 22 121/88 96 Room Air Sp02 EP Interpretation: reviewed, normal General Appearance: no apparent distress, alert, GCS 15, non-toxic Head: normocephalic Eyes: bilateral eye normal inspection, bilateral eye PERRL ENT: normal ENT inspection Neck: full range of motion, no meningismus, no bony tend, supple/symm/no masses Respiratory: normal inspection Cardiovascular #1: normal inspection Gastrointestinal: normal inspection Rectal: deferred Genitourinary: no CVA tenderness Musculoskeletal: tender - TTP R Trapezius. no bruising/swelling Neurologic: alert, oriented x3, responsive, motor strength/tone normal, sensory intact, speech normal Psychiatric: normal inspection Skin: normal inspection Lymphatic: normal inspection Medical Decision Making Diagnostic Impression: Primary Impression: Muscle strain ER Course Hospital Course 56-year-old male presents ED complaining of right shoulder pain Differential diagnoses include: neck strain, shoulder strain, dislocation/ fracture Clinical course Patient placed on stretcher. After initial history and physical exam reveals middle-aged male in no acute distress. On exam there is no midline neck tenderness or shoulder tenderness. Full range of motion to the shoulder. There is pain over the R trapezius. Consistent with a muscle strain I ordered Toradol/valium in ED. Upon reassessment pain is improved Diagnosis - neck strain Stable and discharged to home with prescription for treatment motrin, Flexeril. Followup with PMD. Return to ED if symptoms recur or worsen Last Vital Signs Date Time Temp Pulse Resp B/P (MAP) Pulse Ox O2 Delivery O2 Flow Rate FiO2 01/05/17 17:10 97.6 83 20 202/123 96 Room Air Status: improved Disposition: HOME, SELF-CARE Condition: Stable Scripts Cyclobenzaprine Hcl* (FLEXERIL*) 10 Mg Tablet 10 MG ORAL TID Y for Muscle Spasm, #20 TAB Prov: CORNELL MCRAE M.D. 01/05/17 Ibuprofen* (MOTRIN*) 600 Mg Tablet 600 MG ORAL Q8H Y for For Pain, #30 TAB 0 Refills Prov: CORNELL MCRAE M.D. 01/05/17 Patient Instructions: Muscle Strain, [id number] CORNELL MCRAE M.D. Jan 05, 2017 18:14
== END 2017-01-05 17:13 | disposition home or self-care (01) ==
LOC: EMR 16:18
DX: S16.1XXA Strain of muscle, fascia and tendon at neck level, initial encounter (principal); X58.XXXA Exposure to other specified factors, initial encounter; Y92.009 Unspecified place in unspecified non-institutional (private) residence as the place of occurrence of the external cause; I10 Essential (primary) hypertension
CPT/HCPCS: 96372; 99283; J1885

== ENCOUNTER 2017-05-19 09:39 | Emergency (ER) | payer SELFPAY ==
[~2017-05-19] VITALS: Ht 170.2 cm; Wt 90.7 kg
[~2017-05-19 09:39] MED LIST changes: +CYCLOBENZAPRINE10 MG ORAL
[2017-05-19 10:00] VITALS: BP 179/148
--- NOTE | 2017-05-19 11:45 | Emergency Room Report ---
History of Present Illness General Chief Complaint: Hypertension Source: Patient Present Illness HPI Patient states that his blood pressure has been elevated to systolic blood pressures over 200 at home. He states he did take his blood pressure yesterday and was able to lower it with oral clonidine. He states that when he woke up this morning the blood pressure was elevated again. He states that he is out of his amlodipine and hydrochlorothiazide. He did not take these today. He did take a half a clonidine. He denies chest pain or shortness of breath. He denies headache or neck pain. He denies abdominal pain. He has no other complaints. Allergies: Coded Allergies: No Known Allergies (Unverified , 12/23/11) Patient History Past Medical History: HTN Past Surgical History: none Social History: Denies: smoking, alcohol use, drug use Reviewed Nursing Documentation: PMH: Agreed, PSxH: Agreed Nursing Documentation-PMH Hx Cardiac Problems: No Hx Hypertension: Yes Hx Pacemaker: No Hx Asthma: No Hx COPD: No Hx Diabetes: No Hx Cancer: No Hx Gastrointestinal Problems: No Hx Dialysis: No Hx Neurological Problems: No Hx Cerebrovascular Accident: No Hx Seizures: No Review of Systems All Other Systems: negative except mentioned in HPI Physical Exam Vital Signs Date Time Temp Pulse Resp B/P (MAP) Pulse Ox O2 Delivery O2 Flow Rate FiO2 05/19/17 09:48 98.1 95 18 179/119 97 Room Air 98.1 Sp02 EP Interpretation: reviewed, normal General Appearance: no apparent distress, alert, GCS 15, non-toxic Head: normocephalic, atraumatic Eyes: bilateral eye normal inspection, bilateral eye PERRL ENT: hearing grossly normal, normal pharynx, no angioedema, normal voice Neck: full range of motion, supple/symm/no masses Respiratory: chest non-tender, lungs clear, normal breath sounds, no respiratory distress, no retraction, no accessory muscle use, speaking full sentences Cardiovascular #1: regular rate, rhythm, no edema Gastrointestinal: normal bowel sounds, non tender, soft, non-distended, no guarding, no rebound Rectal: deferred Musculoskeletal: back normal, gait/station normal, normal range of motion, non- tender Neurologic: alert, oriented x3, responsive, motor strength/tone normal, sensory intact, speech normal Psychiatric: judgement/insight normal, memory normal, mood/affect normal, no suicidal/homicidal ideation Skin: normal color, no rash, warm/dry, well hydrated Medical Decision Making Diagnostic Impression: Primary Impression: Hypertension ER Course This patient has known hypertension. He is out of his hypertension medications. I will refill his medications. He is also educated on diet indiscretion. I do not feel that this patient with asymptomatic hypertension needed any further workup at this time. He is instructed to follow-up as an outpatient with his primary care physician. He is given close return precautions and follow-up injections. Last Vital Signs Date Time Temp Pulse Resp B/P (MAP) Pulse Ox O2 Delivery O2 Flow Rate FiO2 05/19/17 10:00 98.3 93 18 179/148 96 Room Air 98.3 Status: improved Disposition: HOME, SELF-CARE Condition: Improved Referrals: NON PHYSICIAN (PCP) Patient Instructions: High Blood Pressure (Hypertension) ROXY FELICIANO D.O. May 19, 2017 11:45
[2017-05-19] MEDS ORDERED: HYDROCHLOROTHIA25 MG ORAL ×2 (11:51→12:01)
[2017-05-19] MEDS ORDERED: CATAPRES0.1 MG ORAL ×2 (11:51→12:01)
[2017-05-19] MEDS ORDERED: AMLODIPINE BESY10 MG ORAL ×2 (11:51→12:01)
[2017-05-19 12:15] VITALS: BP 173/133
== END 2017-05-19 12:15 | disposition home or self-care (01) ==
LOC: EMR 10:47
DX: I10 Essential (primary) hypertension (principal)
CPT/HCPCS: 99282

== ENCOUNTER 2017-11-13 05:10 | Inpatient (IN) | payer MEDICAID ==
[~2017-11-13] VITALS: Ht 170.2 cm; Wt 87.1 kg
[2017-11-13] VITALS (8 sets, daily range): BP systolic 153–220; BP diastolic 98–143
[~2017-11-13 05:10] MED LIST changes: +CATAPRES0.1 MG ORAL
[2017-11-13] MEDS ORDERED: Labetalol 5mg/ml 20ml vial IV ONE (05:30)
[2017-11-13 05:56] LABS: APPEARANCE,URINE CLEAR; BASOPHILS % (AUTO) 1.3 % (0.0-2.0); BILIRUBIN, URINE NEGATIVE (NEGATIVE); COLOR,URINE PALE YELLOW; EOSINOPHILS % (AUTO) 2.2 % (0.0-3.0); GLUCOSE, URINE (UA) NEGATIVE (NEGATIVE); HEMATOCRIT 42.9 % (42.0-52.0); KETONES,URINE NEGATIVE (NEGATIVE); LEUKOCYTE ESTERASE ,URINE NEGATIVE (NEGATIVE); LYMPHOCYTES % (AUTO) 21.6 % (20.0-45.0); MEAN CORPUSCULAR VOLUME 78 FL (80-99); MONOCYTES % (AUTO) 8.8 % (1.0-10.0); NEUTROPHILS % (AUTO) 66.1 % (45.0-75.0); NITRITE,URINE NEGATIVE (NEGATIVE); PH,URINE 7 (4.5-8.0); PLATELET COUNT 279 K/UL (150-450); PROTEIN,URINE 3+ (NEGATIVE); RED BLOOD COUNT 5.47 M/UL (4.70-6.10); RED CELL DISTRIBUTION WIDTH 13.9 % (11.6-14.8); UROBILINOGEN,URINE NORMAL MG/DL (0.0-1.0)
[2017-11-13] MEDS ORDERED: Albuterol/Ipratropium 3ml neb HHN ONE (06:00)
[2017-11-13] MEDS ORDERED: Solu-MEDROL 125mg Inj IVP ONE ×2 (06:00→08:00)
--- NOTE | 2017-11-13 06:02 | Emergency Room Report ---
History of Present Illness General Chief Complaint: Dyspnea/Respdistress Source: Patient Present Illness HPI Is a 57-year-old male with a history high blood pressure. Also was a smoker. He presents with chief complaint of shortness of breath. His been on off for about a month now. His cousin gave him her inhaler. He said this helped some. No coughing. No fever or chills. No chest pain. Worse with exertion. Better with rest. He said that he is compliant with his but pressure medication. He is onto of him. He said that his blood pressure always runs high. Denies any alcohol or drug use. Similar symptoms in the past. No calf tenderness. Allergies: Coded Allergies: No Known Allergies (Unverified , 12/23/11) Patient History Past Medical History: see triage record, old chart reviewed, HTN Past Surgical History: other Pertinent Family History: none Social History: Reports: smoking Immunizations: other Reviewed Nursing Documentation: PMH: Agreed; PSxH: Agreed Nursing Documentation-PMH Hx Cardiac Problems: No Hx Hypertension: Yes Hx Pacemaker: No Hx Asthma: No Hx COPD: No Hx Diabetes: No Hx Cancer: No Hx Gastrointestinal Problems: No Hx Dialysis: No Hx Neurological Problems: No Hx Cerebrovascular Accident: No Hx Seizures: No Review of Systems Eye: Denies: eye pain, blurred vision ENT: Denies: ear pain, nose congestion, throat swelling Respiratory: Reports: shortness of breath; Denies: cough Cardiovascular: Denies: chest pain, palpitations Gastrointestinal: Denies: abdominal pain, diarrhea, nausea, vomiting Musculoskeletal: Denies: back pain, joint pain Skin: Denies: rash Neurological: Denies: headache, numbness Endocrine: Denies: increased thirst, increased urine Hematologic/Lymphatic: Denies: easy bruising All Other Systems: negative except mentioned in HPI Physical Exam Vital Signs Date Time Temp Pulse Resp B/P (MAP) Pulse Ox O2 Delivery O2 Flow Rate FiO2 11/13/17 05:15 98.3 105 22 202/133 95 Room Air 98.2 vitals with high blood pressure Sp02 EP Interpretation: reviewed, normal General Appearance: well appearing, no apparent distress, alert Head: normocephalic, atraumatic Eyes: bilateral eye PERRL, bilateral eye EOMI ENT: hearing grossly normal, normal pharynx Neck: full range of motion, supple, no meningismus Respiratory: chest non-tender, lungs clear, normal breath sounds Cardiovascular #1: regular rate, rhythm, no murmur Gastrointestinal: normal bowel sounds, non tender, no mass, no organomegaly, no bruit, non-distended Musculoskeletal: back normal, gait/station normal, normal range of motion Psychiatric: mood/affect normal Skin: warm/dry Procedures Critical Care Time Critical Care Time Critical care is mandated in this patient who presented with severe high blood pressure requiring IV meds. Patient require my urgent intervention to attenuate the risks of metabolic collapse which may lead to cardiovascular collapse and . Critical care time is 35 minutes excluding any reportable procedure. Critical care time included evaluation, multiple reevaluation, looking at old charts, interpreting laboratory and diagnostic data, discussing case with patient and family and consultants, and charting. Medical Decision Making Diagnostic Impression: Primary Impression: Hypertension Qualified Codes: I10 - Essential (primary) hypertension Additional Impressions: COPD with exacerbation Proteinuria Qualified Codes: R80.9 - Proteinuria, unspecified Malignant hypertension CKD (chronic kidney disease) Qualified Codes: N18.9 - Chronic kidney disease, unspecified Acute exacerbation of CHF (congestive heart failure) Qualified Codes: I50.9 - Heart failure, unspecified Hypokalemia ER Course This patient presents with shortness of breath. He does have hypertension. Slowly improving with medication. I doubt his compliance regarding taken his blood pressure medication. Explained to patient that he is high risk for stroke , heart attack, renal failure to name a few. Patient would benefit from admission for continual monitoring and IV medication to control his blood pressure better. Lab Results Impression labs with increasing creatine. EKG Diagnostic Results Rate: normal Rhythm: NSR ST Segments: other - TWI inferiorly. no change from 2017 Rhythm Strip Diag. Results Rhythm Strip Time: 06:05 EP Interpretation: yes Rate: 92 Rhythm: NSR, no PVC's, no ectopy Chest X-Ray Diagnostic Results Chest X-Ray Diagnostic Results : Chest X-Ray Ordered: Yes # of Views/Limited/Complete: 1 View Indication: Shortness of Breath EP Interpretation: Yes Interpretation: no consolidation, no effusion, no pneumothorax, no acute cardiopulmonary disease, other - large Rt upper lobe bleb. no change Impression: Other - copd Electronically Signed by: Pete Devries MD Last Vital Signs Date Time Temp Pulse Resp B/P (MAP) Pulse Ox O2 Delivery O2 Flow Rate FiO2 9/8/18 05:49 104 202/145 11/13/17 05:25 97.8 28 100 Room Air 97.8 Status: improved Disposition: ADMITTED INPATIENT Condition: Serious Referrals: NOT CHOSEN JIGAR/,REFERRING (PCP) PETE DEVRIES M.D. Nov 13, 2017 06:02
[2017-11-13 06:07] LABS: ANION GAP 9 mmol/L (5-15); BLOOD UREA NITROGEN 27 mg/dL (7-18); CALCIUM 8.7 MG/DL (8.5-10.1); CARBON DIOXIDE 31 MMOL/L (21-32); CHLORIDE 102 MMOL/L (98-107); CREATININE 2.7 MG/DL (0.55-1.30); POTASSIUM 2.8 MMOL/L (3.5-5.1); SODIUM 142 MMOL/L (136-145)
--- NOTE | 2017-11-13 06:17 | Diagnostic Imaging Report ---
EXAM: XR Chest, 1 View. CLINICAL HISTORY: SOB TECHNIQUE: Frontal view of the chest. COMPARISON: 05/07/16 FINDINGS: Lungs: Increased interstitial markings in both lungs may be secondary to pulmonary edema. Moderate emphysematous changes with large bulla seen in the right upper lobe. No definite airspace consolidation. Pleural spaces: No evidence of pneumothorax. No significant pleural effusion. Heart: Cardiac silhouette is unchanged and within normal limits.. Mediastinum: No mediastinal widening or shift. Bones: Unremarkable. No acute fracture. IMPRESSION: Probable mild interstitial edema. No definite airspace consolidation. Emphysematous changes with large right upper lobe bulla.
[2017-11-13 06:20] LABS: ALANINE AMINOTRANSFERASE 21 U/L (12-78); ALBUMIN 3.3 G/DL (3.4-5.0); ALBUMIN/GLOBULIN RATIO 0.7 (1.0-2.7); ALKALINE PHOSPHATASE 80 U/L (46-116); ASPARTATE AMINO TRANSFERASE 17 U/L (15-37); BILIRUBIN,TOTAL 0.5 MG/DL (0.2-1.0); CKMB 1.5 NG/ML (0.0-3.6); CREATINE KINASE 166 U/L (26-308)
[2017-11-13] MEDS ORDERED: Norco 5mg/325mg tab ONE (09:20)
[2017-11-13] MEDS ORDERED: Norco 5mg/325mg tab ORAL ONE (09:30)
[2017-11-13] MEDS ORDERED: Ketorolac 30mg Inj IV PRN (11:30)
[2017-11-13] MEDS ORDERED: Enalaprilat 2.5mg/2ml Inj IV PRN (11:30)
[2017-11-13] MEDS ORDERED: Promethazine/Codeine 5ml UD ORAL PRN (11:30)
[2017-11-13] MEDS ORDERED: Morphine Sulfate 2mg/ml Inj IVP PRN (11:30)
[2017-11-13] MEDS ORDERED: Labetalol 5mg/ml 20ml vial IV PRN (11:30)
[2017-11-13] MEDS ORDERED: Nitroglycerin Subl 0.4mg tab SL PRN (11:30)
[2017-11-13] MEDS ORDERED: LORazepam Inj 2mg/ml 1ml IV PRN (11:30)
[2017-11-13 11:43] LABS: CREATINE KINASE 173 U/L (26-308)
--- NOTE | 2017-11-13 12:30 | History and Physical Report ---
DATE OF ADMISSION: 11/13/2017 TIME: 8 a.m. CONSULTANTS: 1. Jason Astorga M.D. 2. Chang Peterson M.D. 3. Staci Blum M.D. CHIEF COMPLAINT: Shortness of breath, hypertensive urgency, and renal failure. BRIEF HISTORY: This is a 57-year-old male, who lives at home, presents with two weeks of increased shortness of breath intermittently, two days ago ran out of blood pressure medication, came in today with some headache and shortness of breath, diagnosed with shortness of breath and hypertensive urgency and being admitted to telemetry shortly. Currently slightly anxious in bed in the ER, oriented x3, slight headache. No chest pain. Slight short of breath. No nausea, vomiting, or diarrhea. PAST MEDICAL HISTORY: Includes hypertension, COPD, and CKD. PAST SURGICAL HISTORY: None. ALLERGIES: Denies. SOCIAL HISTORY: Positive smoke. No alcohol. No intravenous drug abuse. FAMILY HISTORY: Noncontributory. PHYSICAL EXAMINATION: GENERAL: Slightly anxious in bed, oriented x3, in no acute distress. VITAL SIGNS: Temperature is not given, pulse 90, respirations 24, and blood pressure 196/140. CARDIOVASCULAR: . ABDOMEN: Bowel sounds positive. Soft, nontender, and nondistended. EXTREMITIES: Showed no cyanosis, clubbing, or edema. NEUROLOGIC: The patient moves all extremities, slightly weak. LABORATORY DATA: White count 11, hemoglobin and hematocrit 14/42. Otherwise, CBC is normal. BMP shows potassium 2.8, BUN and creatinine 27 and 2.7, and glucose 162. Troponin 0.038. BNP is 2637. Albumin 3.3. INR is 1.0 and PTT 28. Urine tox is negative. Urinalysis is 3+ blood, 3+ protein. MEDICATIONS: Include methylprednisolone, clonidine, furosemide, potassium, hydralazine, and albuterol. ASSESSMENT: 1. Shortness of breath. 2. Hypertension. 3. Renal failure. 4. Chronic obstructive pulmonary disease. 5. Chronic kidney disease. 6. Diabetes. PLAN: 1. Continue previous medications. 2. O2 and pulmonary treatment. 3. Antibiotics. 4. Blood pressure and blood sugar control. 5. Dietary followup. 6. Pain control. 7. CBC and BMP in the morning. Jossue Mane D.O. DR: CHELITA JOB#: [id number] CC:
--- NOTE | 2017-11-13 13:32 | Consultation ---
History of Present Illness General Date patient seen: Nov 13, 2017 Time patient seen: 12:00 Chief Complaint: Dyspnea/Respdistress Referring physician: dr Mane Reason for Consultation: COPD exacerbation Present Illness HPI 57 y/old male with PMH of HTN, CKD, BPH, presented with complain of from shortness of breath. Shortness of breath ongoing for about a month. His cousin gave him an inhaler, which somehow helped. He denied fever or chills. He denied chest pain. He denied cough. Patient not always compliant with blood pressure medication. He reported blood pressure not being in control . Patient reported smoking cigarettes. Upon evaluation in emergency department blood pressure 202/133 , patient was tachycardic -104 and tachypneic-28. Pulse oximetry was stable on room air. No fever. Laboratory workup revealed WBC 11 ,hemoglobin 14 ,potassium 2.8 , BUN 27 creatinine 2.7 Troponin negative , pro BNP 2637. Urine toxicology screen was negative . Urinalysis was negative for UTI Chest x-ray revealed mild interstitial edema, no definite airspace consolidation. Large right upper lobe bulla. ECG with sinus rhythm HR 94, TWI inferiorly. no change from 2017. Patient admitted with diagnoses of COPD exacerbation ,hypertensive emergency, hypokalemia ,chronic kidney disease. Allergies: Coded Allergies: No Known Allergies (Unverified , 12/23/11) Medication History Scheduled Amlodipine Besylate* (Amlodipine Besylate*), 10 MG ORAL DAILY Amlodipine Besylate* (Amlodipine Besylate*), 10 MG ORAL DAILY Clonidine Hcl* (Catapres*), 0.1 MG ORAL Q8H Hydrochlorothiazide* (Hydrochlorothiazide*), 25 MG ORAL DAILY Hydrochlorothiazide* (Hydrochlorothiazide*), 25 MG ORAL DAILY Hydrochlorothiazide* (Hydrochlorothiazide*), 25 MG ORAL DAILY Trimethoprim/Sulfamethoxazole 160/800* (Bactrim Ds Tablet*), 1 TAB ORAL Q12H Scheduled PRN Ibuprofen* (Motrin*), 600 MG ORAL Q8H PRN for For Pain Patient History Healthcare decision maker Resuscitation status Full Code Advanced Directive on File Review of Systems Constitutional: Reports: weakness Eye: Reports: no symptoms ENT: Reports: no symptoms Respiratory: Reports: see HPI Cardiovascular: Reports: see HPI Gastrointestinal: Reports: no symptoms Genitourinary: Reports: other - chronic kidney insufficiency, BPH Musculoskeletal: Reports: no symptoms Skin: Reports: no symptoms Psychiatric: Reports: no symptoms Neurological: Reports: no symptoms Endocrine: Reports: no symptoms Hematologic/Lymphatic: Reports: no symptoms Physical Exam Lines, tubes and drains: peripheral HEENT: normocephalic, atraumatic, PERRL, EOMI, supple, no JVD Neck: non-tender, supple Respiratory/Chest: chest wall non-tender, no accessory muscle use, decreased breath sounds Cardiovascular/Chest: normal peripheral pulses, normal rate - SR, no JVD Abdomen: normal bowel sounds, soft Extremities: no calf tenderness, normal capillary refill Skin Exam: warm/dry Neurologic: no motor/sensory deficits, alert, oriented x 3, responsive Musculoskeletal: normal muscle bulk Last 24 Hour Vital Signs Date Time Temp Pulse Resp B/P (MAP) Pulse Ox O2 Delivery O2 Flow Rate FiO2 11/13/17 10:54 Nasal Cannula 2.0 11/13/17 10:26 97.8 95 23 168/119 100 Room Air 97.8 11/13/17 10:15 96.3 91 24 153/110 (124) 98 96.3 11/13/17 09:52 97.8 11/13/17 09:51 95 23 168/119 100 Room Air 11/13/17 09:21 97.8 11/13/17 08:00 95 23 197/131 100 Room Air 11/13/17 07:41 210/134 11/13/17 07:34 Room Air 11/13/17 06:18 196/140 11/13/17 06:00 90 24 100 Room Air 21 11/13/17 05:51 89 26 97 Room Air 21 11/13/17 05:51 36 11/13/17 05:51 87 28 Room Air 21 11/13/17 05:49 104 202/145 11/13/17 05:35 104 28 Room Air 11/13/17 05:25 97.8 104 28 220/143 100 Room Air 97.8 11/13/17 05:15 98.3 105 22 202/133 95 Room Air 98.2 Laboratory Tests Test 11/13/17 05:25 11/13/17 05:35 Uric Acid 6.1 MG/DL (2.6-7.2) Total Creatine Kinase 173 U/L (26-308) 166 U/L (26-308) White Blood Count 11.0 K/UL (4.8-10.8) H Red Blood Count 5.47 M/UL (4.70-6.10) Hemoglobin 14.0 G/DL (14.2-18.0) L Hematocrit 42.9 % (42.0-52.0) Mean Corpuscular Volume 78 FL (80-99) L Mean Corpuscular Hemoglobin 25.7 PG (27.0-31.0) L Mean Corpuscular Hemoglobin Concent 32.7 G/DL (32.0-36.0) Red Cell Distribution Width 13.9 % (11.6-14.8) Platelet Count 279 K/UL (150-450) Mean Platelet Volume 7.7 FL (6.5-10.1) Neutrophils (%) (Auto) 66.1 % (45.0-75.0) Lymphocytes (%) (Auto) 21.6 % (20.0-45.0) Monocytes (%) (Auto) 8.8 % (1.0-10.0) Eosinophils (%) (Auto) 2.2 % (0.0-3.0) Basophils (%) (Auto) 1.3 % (0.0-2.0) Prothrombin Time 10.7 SEC (9.30-11.50) Prothromb Time International Ratio 1.0 (0.9-1.1) Activated Partial Thromboplast Time 28 SEC (23-33) Urine Color Pale yellow Urine Appearance Clear Urine pH 7 (4.5-8.0) Urine Specific [place] 1.010 (1.005-1.035) Urine Protein 3+ (NEGATIVE) H Urine Glucose (UA) Negative (NEGATIVE) Urine Ketones Negative (NEGATIVE) Urine Blood 3+ (NEGATIVE) H Urine Nitrite Negative (NEGATIVE) Urine Bilirubin Negative (NEGATIVE) Urine Urobilinogen Normal MG/DL (0.0-1.0) Urine Leukocyte Esterase Negative (NEGATIVE) Urine RBC 5-10 /HPF (0 - 0) H Urine WBC 2-4 /HPF (0 - 0) Urine Squamous Epithelial Cells Occasional /LPF Urine Bacteria Occasional /HPF (NONE) Sodium Level 142 MMOL/L (136-145) Potassium Level 2.8 MMOL/L (3.5-5.1) L Chloride Level 102 MMOL/L (98-107) Carbon Dioxide Level 31 MMOL/L (21-32) Anion Gap 9 mmol/L (5-15) Blood Urea Nitrogen 27 mg/dL (7-18) H Creatinine 2.7 MG/DL (0.55-1.30) H Estimat Glomerular Filtration Rate 29.6 mL/min (>60) Glucose Level 162 MG/DL (74-106) H Calcium Level 8.7 MG/DL (8.5-10.1) Total Bilirubin 0.5 MG/DL (0.2-1.0) Aspartate Amino Transf (AST/SGOT) 17 U/L (15-37) Alanine Aminotransferase (ALT/SGPT) 21 U/L (12-78) Alkaline Phosphatase 80 U/L (46-116) Creatine Kinase MB 1.5 NG/ML (0.0-3.6) Creatine Kinase MB Relative Index 0.9 Troponin I 0.038 ng/mL (0.000-0.056) Pro-B-Type Natriuretic Peptide 2637 pg/mL (0-125) H Total Protein 7.9 G/DL (6.4-8.2) Albumin 3.3 G/DL (3.4-5.0) L Globulin 4.6 g/dL Albumin/Globulin Ratio 0.7 (1.0-2.7) L Urine Opiates Screen Negative (NEGATIVE) Urine Barbiturates Screen Negative (NEGATIVE) Phencyclidine (PCP) Screen Negative (NEGATIVE) Urine Amphetamines Screen Negative (NEGATIVE) Urine Benzodiazepines Screen Negative (NEGATIVE) Urine Cocaine Screen Negative (NEGATIVE) Urine Marijuana (THC) Screen Negative (NEGATIVE) Height (Feet): 5 Height (Inches): 7.00 Weight (Pounds): 188 Medications Current Medications Medications (Trade) Dose Ordered Sig/Kathleen Route PRN Reason Start Time Stop Time Status Last Admin Dose Admin Acetaminophen (Tylenol) 650 mg Q4H PRN ORAL Fever/Headache/Mild Pain 11/13/17 11:55 12/13/17 11:54 Albuterol/ Ipratropium (Albuterol/ Ipratropium) 3 ml Q4H PRN HHN dyspnea 11/13/17 11:30 11/18/17 11:29 Amlodipine Besylate (Norvasc) 10 mg DAILY ORAL 11/14/17 09:00 12/14/17 08:59 Clonidine HCl (Catapres Tab) 0.1 mg Q8HR ORAL 11/13/17 14:00 12/13/17 13:59 Dextrose (Dextrose 50%) 25 ml STAT PRN IV Hypoglycemia 11/13/17 11:30 12/13/17 11:29 Dextrose (Dextrose 50%) 50 ml STAT PRN IV Hypoglycemia 11/13/17 11:30 12/13/17 11:29 Dextrose/Sodium Chloride 1,000 ml @ 60 mls/hr [id number] IV 11/13/17 11:55 12/13/17 11:54 Enalaprilat (Vasotec) 2.5 mg Q4H PRN IV sbp more than 200 11/13/17 11:30 12/13/17 11:29 Heparin Sodium (Porcine) (Heparin 5000 units/ml) 5,000 units EVERY 12 HOURS SUBQ 11/13/17 21:00 12/13/17 20:59 Hydralazine HCl (Apresoline) 20 mg Q4H PRN IV sbp more than 160 11/13/17 11:30 12/13/17 11:29 Hydrochlorothiazide (Hydrodiuril) 25 mg DAILY ORAL 11/14/17 09:00 12/14/17 08:59 Ketorolac Tromethamine (Toradol 30mg) 30 mg Q8H PRN IV moderate pain 4-6 11/13/17 11:30 11/18/17 11:29 Labetalol HCl (Normodyne) 20 mg Q1H PRN IV sbp more than 180 11/13/17 11:30 12/13/17 11:29 Lorazepam (Ativan 2mg/ml 1ml) 0.5 mg Q4H PRN IV For Anxiety 11/13/17 11:30 11/20/17 11:29 Methylprednisolone Sodium Succinate (Solu-MEDROL) 60 mg Q6H IV 11/13/17 14:00 12/13/17 13:59 Morphine Sulfate (Morphine Sulfate) 2 mg Q4H PRN IVP severe pain 7-10 11/13/17 11:30 11/20/17 11:29 Nitroglycerin (Ntg) 0.4 mg Q5M X 3 DOSES PRN SL Prn Chest Pain 11/13/17 11:30 12/13/17 11:29 Ondansetron HCl (Zofran) 4 mg Q6H PRN IVP Nausea & Vomiting 11/13/17 11:30 12/13/17 11:29 Piperacillin Sod/ Tazobactam Sod 3.375 gm/Dextrose 110 ml @ 27.5 mls/hr EVERY 8 HOURS IVPB 11/13/17 13:00 11/18/17 12:59 Promethazine HCl/ Codeine (Phenergan with Codeine) 5 ml Q6H PRN ORAL cough 11/13/17 11:30 12/13/17 11:29 Temazepam (Restoril) 15 mg HSPRN PRN ORAL Insomnia 11/13/17 11:30 11/20/17 11:29 Theophylline (Rosendo-Dur) 100 mg EVERY 12 HOURS ORAL 11/13/17 21:00 12/13/17 20:59 Assessment/Plan Assessment/Plan ASSESSMENT hypertensive emergency COPD exacerbation emphysema hypertensive kidney disease hypokalemia acute kidney injury on chronic kidney disease smoker CHF Nicotine dependency with withdrawal PLAN OF CARE telemetry floor O2 , HHN empiric antibiotic sputum culture IV steroids and taper trial of theophylline antitussive prn fup with CXR DVT prophylaxis BP management with CCB and HcTz , optimize further prn, prn anti HTN on board as well- ordered patient with history of chronic kidney disease gentle IVF until creat at baseline avoid nephrotoxins ,monitor electrolytes and renal parameters replace electrolytes prn, K replaced ECHO on previous admission with pEF currently no evidence of acute CHF exacerbation Venous Duplex BLE patient counseled on smoking cessation , started on Nicotine patch patient declined nicotine patch bowel regimen pain management prn supportive care case discussed and evaluated by supervising physician Herlinda Montenegro NP Nov 13, 2017 13:32
[2017-11-13] MEDS: Piperacillin/Tazobactam 3.375 GM in D5W 110 ML IVPB SCH ×2 (13:51→21:19)
[2017-11-13] MEDS ORDERED: Solu-MEDROL 125mg Inj IV SCH (14:00)
[2017-11-13] MEDS ORDERED: Piperacillin/Tazobactam 2.25 GM in D5W 55 ML IV SCH (14:00)
[2017-11-13] MEDS: D5 1/2NS 1,000 ML IV SCH (14:04)
[2017-11-13 14:34] LABS: APPEARANCE,URINE CLEAR; BILIRUBIN, URINE NEGATIVE (NEGATIVE); COLOR,URINE PALE YELLOW; GLUCOSE, URINE (UA) NEGATIVE (NEGATIVE); KETONES,URINE NEGATIVE (NEGATIVE); LEUKOCYTE ESTERASE ,URINE NEGATIVE (NEGATIVE); NITRITE,URINE NEGATIVE (NEGATIVE); PH,URINE 6.5 (4.5-8.0); PROTEIN,URINE 3+ (NEGATIVE); UROBILINOGEN,URINE NORMAL MG/DL (0.0-1.0)
--- NOTE | 2017-11-13 15:25 | Cardiology Progress Note ---
Assessment/Plan Assessment/Plan The patient is seen and examined, full consult note will be dictated. Objective Last 24 Hour Vital Signs Date Time Temp Pulse Resp B/P (MAP) Pulse Ox O2 Delivery O2 Flow Rate FiO2 11/13/17 13:52 194/124 11/13/17 12:30 97.2 87 20 175/124 (141) 100 97.2 11/13/17 10:54 Nasal Cannula 2.0 11/13/17 10:26 97.8 95 23 168/119 100 Room Air 97.8 11/13/17 10:15 96.3 91 24 153/110 (124) 98 96.3 11/13/17 09:52 97.8 11/13/17 09:51 95 23 168/119 100 Room Air 11/13/17 09:21 97.8 11/13/17 08:00 95 23 197/131 100 Room Air 11/13/17 07:41 210/134 11/13/17 07:34 Room Air 11/13/17 06:18 196/140 11/13/17 06:00 90 24 100 Room Air 21 11/13/17 05:51 89 26 97 Room Air 21 11/13/17 05:51 36 11/13/17 05:51 87 28 Room Air 21 11/13/17 05:49 104 202/145 11/13/17 05:35 104 28 Room Air 11/13/17 05:25 97.8 104 28 220/143 100 Room Air 97.8 11/13/17 05:15 98.3 105 22 202/133 95 Room Air 98.2 Laboratory Tests Test 11/13/17 05:25 11/13/17 05:35 11/13/17 12:30 Uric Acid 6.1 MG/DL (2.6-7.2) Total Creatine Kinase 173 U/L (26-308) 166 U/L (26-308) White Blood Count 11.0 K/UL (4.8-10.8) H Red Blood Count 5.47 M/UL (4.70-6.10) Hemoglobin 14.0 G/DL (14.2-18.0) L Hematocrit 42.9 % (42.0-52.0) Mean Corpuscular Volume 78 FL (80-99) L Mean Corpuscular Hemoglobin 25.7 PG (27.0-31.0) L Mean Corpuscular Hemoglobin Concent 32.7 G/DL (32.0-36.0) Red Cell Distribution Width 13.9 % (11.6-14.8) Platelet Count 279 K/UL (150-450) Mean Platelet Volume 7.7 FL (6.5-10.1) Neutrophils (%) (Auto) 66.1 % (45.0-75.0) Lymphocytes (%) (Auto) 21.6 % (20.0-45.0) Monocytes (%) (Auto) 8.8 % (1.0-10.0) Eosinophils (%) (Auto) 2.2 % (0.0-3.0) Basophils (%) (Auto) 1.3 % (0.0-2.0) Prothrombin Time 10.7 SEC (9.30-11.50) Prothromb Time International Ratio 1.0 (0.9-1.1) Activated Partial Thromboplast Time 28 SEC (23-33) Urine Color Pale yellow Pale yellow Urine Appearance Clear Clear Urine pH 7 (4.5-8.0) 6.5 (4.5-8.0) Urine Specific [place] 1.010 (1.005-1.035) 1.010 (1.005-1.035) Urine Protein 3+ (NEGATIVE) H 3+ (NEGATIVE) H Urine Glucose (UA) Negative (NEGATIVE) Negative (NEGATIVE) Urine Ketones Negative (NEGATIVE) Negative (NEGATIVE) Urine Blood 3+ (NEGATIVE) H 2+ (NEGATIVE) H Urine Nitrite Negative (NEGATIVE) Negative (NEGATIVE) Urine Bilirubin Negative (NEGATIVE) Negative (NEGATIVE) Urine Urobilinogen Normal MG/DL (0.0-1.0) Normal MG/DL (0.0-1.0) Urine Leukocyte Esterase Negative (NEGATIVE) Negative (NEGATIVE) Urine RBC 5-10 /HPF (0 - 0) H 2-4 /HPF (0 - 0) H Urine WBC 2-4 /HPF (0 - 0) 0 /HPF (0 - 0) Urine Squamous Epithelial Cells Occasional /LPF None /LPF (NONE/OCC) Urine Bacteria Occasional /HPF (NONE) None /HPF (NONE) Sodium Level 142 MMOL/L (136-145) Potassium Level 2.8 MMOL/L (3.5-5.1) L Chloride Level 102 MMOL/L (98-107) Carbon Dioxide Level 31 MMOL/L (21-32) Anion Gap 9 mmol/L (5-15) Blood Urea Nitrogen 27 mg/dL (7-18) H Creatinine 2.7 MG/DL (0.55-1.30) H Estimat Glomerular Filtration Rate 29.6 mL/min (>60) Glucose Level 162 MG/DL (74-106) H Calcium Level 8.7 MG/DL (8.5-10.1) Total Bilirubin 0.5 MG/DL (0.2-1.0) Aspartate Amino Transf (AST/SGOT) 17 U/L (15-37) Alanine Aminotransferase (ALT/SGPT) 21 U/L (12-78) Alkaline Phosphatase 80 U/L (46-116) Creatine Kinase MB 1.5 NG/ML (0.0-3.6) Creatine Kinase MB Relative Index 0.9 Troponin I 0.038 ng/mL (0.000-0.056) Pro-B-Type Natriuretic Peptide 2637 pg/mL (0-125) H Total Protein 7.9 G/DL (6.4-8.2) Albumin 3.3 G/DL (3.4-5.0) L Globulin 4.6 g/dL Albumin/Globulin Ratio 0.7 (1.0-2.7) L Urine Opiates Screen Negative (NEGATIVE) Urine Barbiturates Screen Negative (NEGATIVE) Phencyclidine (PCP) Screen Negative (NEGATIVE) Urine Amphetamines Screen Negative (NEGATIVE) Urine Benzodiazepines Screen Negative (NEGATIVE) Urine Cocaine Screen Negative (NEGATIVE) Urine Marijuana (THC) Screen Negative (NEGATIVE) Urine Eosinophils Pending Urine Random Sodium 70 mmol/L (20-110) Urine Potassium Timed 43 mmol/L (12-62) Chang Peterson MD Nov 13, 2017 15:24
[2017-11-13] MEDS ORDERED: D5 1/2NS 1000ml IV ONE (18:34)
[2017-11-13] MEDS ORDERED: Tubing IV Secondary IV ONE (18:34)
[2017-11-13] MEDS ORDERED: NS 275ml ONE (18:34)
[2017-11-13] MEDS: Heparin 5000 units/ml inj SUBQ SCH ×2 (21:00→21:21)
[2017-11-13] MEDS: Theophylline ER 100mg ORAL SCH (21:19)
[2017-11-13] MEDS: Solu-MEDROL 40mg Inj IVP SCH (21:20)
[2017-11-14] VITALS: BP 156/100
[2017-11-14] MEDS: Solu-MEDROL 40mg Inj IVP SCH ×2 (02:04→08:32)
[2017-11-14 04:00] VITALS: BP 159/101
[2017-11-14] MEDS: Piperacillin/Tazobactam 3.375 GM in D5W 110 ML IVPB SCH ×3 (05:14→21:37)
[2017-11-14] MEDS: D5 1/2NS 1,000 ML IV SCH ×2 (05:14→21:37)
[2017-11-14 08:00] VITALS: BP 154/114
--- NOTE | 2017-11-14 08:26 | General Progress Note ---
Assessment/Plan Problem List: (1) CKD (chronic kidney disease) ICD Codes: N18.9 - Chronic kidney disease, unspecified SNOMED: 552026937 Qualifiers: Qualified Codes: N18.9 - Chronic kidney disease, unspecified (2) Malignant hypertension ICD Codes: I10 - Essential (primary) hypertension SNOMED: 57704407 Status: unchanged Assessment/Plan bp control pain control cbc bmp am Subjective Constitutional: Reports: weakness Allergies: Coded Allergies: No Known Allergies (Unverified , 12/23/11) All Systems: reviewed and negative except above Subjective calm in bed Objective Last 24 Hour Vital Signs Date Time Temp Pulse Resp B/P (MAP) Pulse Ox O2 Delivery O2 Flow Rate FiO2 11/14/17 05:14 159/101 11/14/17 04:00 98 11/14/17 04:00 97.2 102 22 159/101 (120) 99 97.2 11/14/17 00:00 97.4 23 156/100 (118) 96 97.4 11/14/17 00:00 104 11/13/17 21:19 156/98 11/13/17 21:00 Nasal Cannula 2.0 11/13/17 20:00 110 11/13/17 20:00 97.7 105 21 156/98 (117) 100 97.7 11/13/17 16:11 160/129 11/13/17 16:05 97.7 97 20 160/129 (139) 100 97.7 11/13/17 16:00 94 11/13/17 13:52 194/124 11/13/17 12:30 97.2 87 20 175/124 (141) 100 97.2 11/13/17 12:00 87 11/13/17 10:54 Nasal Cannula 2.0 11/13/17 10:29 91 11/13/17 10:26 97.8 95 23 168/119 100 Room Air 97.8 11/13/17 10:15 96.3 91 24 153/110 (124) 98 96.3 11/13/17 09:52 97.8 11/13/17 09:51 95 23 168/119 100 Room Air 11/13/17 09:21 97.8 Intake and Output 11/13/17 11/14/17 19:00 07:00 Intake Total 1050.0 ml 450 ml Output Total 2780 ml 1000 ml Balance -1730.0 ml -550 ml Intake Oral 840 ml 450 ml IV Total 210.0 ml Output Urine Total 2780 ml 1000 ml # Voids 8 Laboratory Tests 11/13/17 12:30: Urine Color Pale yellow, Urine Appearance Clear, Urine pH 6.5, Urine Specific [place] 1.010, Urine Protein 3+H, Urine Glucose (UA) Negative, Urine Ketones Negative, Urine Blood 2+H, Urine Nitrite Negative, Urine Bilirubin Negative, Urine Urobilinogen Normal, Urine Leukocyte Esterase Negative, Urine RBC 2-4H, Urine WBC 0, Urine Squamous Epithelial Cells None, Urine Bacteria None, Urine Eosinophils None seen, Urine Random Sodium 70, Urine Potassium Timed 43 Height (Feet): 5 Height (Inches): 7.00 Weight (Pounds): 188 General Appearance: alert EENT: normal ENT inspection Neck: normal alignment Cardiovascular: normal peripheral pulses, normal rate, regular rhythm Respiratory/Chest: chest wall non-tender, lungs clear, normal breath sounds Abdomen: normal bowel sounds, non tender, soft Extremities: normal inspection Edema: no edema noted Arm (L), no edema noted Arm (R), no edema noted Leg (L), no edema noted Leg (R), no edema noted Pedal (L), no edema noted Pedal (R), no edema noted Generalized Neurologic: responsive, motor weakness Skin: normal pigmentation, warm/dry Jossue Mane DO Nov 14, 2017 08:26
[2017-11-14] MEDS: Theophylline ER 100mg ORAL SCH ×2 (08:32→21:38)
[2017-11-14] MEDS: Heparin 5000 units/ml inj SUBQ SCH ×2 (08:33→21:00)
[2017-11-14 08:37] LABS: HEMATOCRIT 42.8 % (42.0-52.0); HEMOGLOBIN 13.4 G/DL (14.2-18.0); MEAN CORPUSCULAR VOLUME 78 FL (80-99); PLATELET COUNT 299 K/UL (150-450); RED BLOOD COUNT 5.48 M/UL (4.70-6.10); RED CELL DISTRIBUTION WIDTH 14.6 % (11.6-14.8)
[2017-11-14 08:45] LABS: WHITE BLOOD COUNT 34.3 K/UL (4.8-10.8)
[2017-11-14] MEDS ORDERED: D5 1/2NS 1000ml IV ONE (09:19)
[2017-11-14 10:31] LABS: ANION GAP 9 mmol/L (5-15); BLOOD UREA NITROGEN 40 mg/dL (7-18); CALCIUM 9.5 MG/DL (8.5-10.1); CARBON DIOXIDE 27 MMOL/L (21-32); CHLORIDE 100 MMOL/L (98-107); POTASSIUM 3.3 MMOL/L (3.5-5.1); SODIUM 136 MMOL/L (136-145)
[2017-11-14 12:00] VITALS: BP 147/113
[2017-11-14 16:00] VITALS: BP 146/102
--- NOTE | 2017-11-14 17:50 | Nephrology Progress Note ---
Assessment/Plan Plan pt seen and examined full consult dictated d/c Toradol d/c lisinopril start [facility] check urine study us of kidney bladder scan Objective Objective Last 24 Hour Vital Signs Date Time Temp Pulse Resp B/P (MAP) Pulse Ox O2 Delivery O2 Flow Rate FiO2 11/14/17 16:00 104 11/14/17 16:00 97.2 103 20 146/102 (117) 98 97.2 11/14/17 14:18 147/113 11/14/17 12:00 101 11/14/17 12:00 96.4 101 18 147/113 (124) 96 96.4 11/14/17 09:35 Nasal Cannula 2.0 28 11/14/17 09:35 93 Nasal Cannula 2.0 28 11/14/17 09:00 Nasal Cannula 2.0 11/14/17 08:32 106 154/114 11/14/17 08:00 97.7 106 20 154/114 (127) 97 97.7 11/14/17 08:00 113 11/14/17 07:30 110 20 Nasal Cannula 2.0 28 11/14/17 05:14 159/101 11/14/17 04:00 98 11/14/17 04:00 97.2 102 22 159/101 (120) 99 97.2 11/14/17 00:00 97.4 23 156/100 (118) 96 97.4 11/14/17 00:00 104 11/13/17 21:19 156/98 11/13/17 21:00 Nasal Cannula 2.0 11/13/17 20:00 110 11/13/17 20:00 97.7 105 21 156/98 (117) 100 97.7 Intake and Output 11/13/17 11/14/17 19:00 07:00 Intake Total 1050.0 ml 450 ml Output Total 2780 ml 1000 ml Balance -1730.0 ml -550 ml Intake Oral 840 ml 450 ml IV Total 210.0 ml Output Urine Total 2780 ml 1000 ml # Voids 8 Laboratory Tests 11/14/17 07:35: White Blood Count 34.3#*H, Red Blood Count 5.48, Hemoglobin 13.4L, Hematocrit 42.8, Mean Corpuscular Volume 78L, Mean Corpuscular Hemoglobin 24.4L, Mean Corpuscular Hemoglobin Concent 31.2L, Red Cell Distribution Width 14.6, Platelet Count 299, Mean Platelet Volume 7.7, Neutrophils (%) (Auto) , Lymphocytes (%) (Auto) , Monocytes (%) (Auto) , Eosinophils (%) (Auto) , Basophils (%) (Auto) , Differential Total Cells Counted 100, Neutrophils % ( Manual) 87H, Lymphocytes % (Manual) 9L, Monocytes % (Manual) 4, Eosinophils % ( Manual) 0, Basophils % (Manual) 0, Band Neutrophils 0, Platelet Estimate Adequate, Platelet Morphology Normal, Hypochromasia 1+, Anisocytosis 1+, Microcytosis 1+, Sodium Level 136, Potassium Level 3.3L, Chloride Level 100, Carbon Dioxide Level 27, Anion Gap 9, Blood Urea Nitrogen 40H, Creatinine 3.0H, Estimat Glomerular Filtration Rate 26.2, Glucose Level 172H, Calcium Level 9.5 Height (Feet): 5 Height (Inches): 7.00 Weight (Pounds): 188 Staci Blum MD Nov 14, 2017 17:50
--- NOTE | 2017-11-14 18:39 | Cardiology Report ---
APPROVED REPORT EXAM: Two-dimensional and M-mode echocardiogram with Doppler and color Doppler. INDICATION HYPERTENSIVE HEART DIS M-Mode DIMENSIONS IVSd1.2 (0.7-1.1cm) LVDd4.2 (3.5-5.6cm) PWd1.5 (0.7-1.1cm) IVSs1.8 cm LVDs3.0 (2.5-4.0cm) PWs1.7 cm Technically difficult study due to poor acoustical windows . Normal left ventricular chamber size, systolic function and wall motion . Left ventricular ejection fraction estimated to be 60-65%. Mild left ventricular hypertrophy by 2-D. Small posterior pericardial effusion. All other cardiac chamber sizes are within normal limits. Focal aortic valve sclerosis with adequate cusp excursion. Thickened mitral valve leaflets with normal excursion. Mitral annulus and aortic root calcification. Pulmonic valve not well visualized. Normal tricuspid valve structure. IVC at normal size with physiologic collapse. A color flow and spectral Doppler study was performed and revealed: No aortic regurgitation. Mild mitral regurgitation. Normal left ventricular diastolic function . Mild tricuspid regurgitation. Tricuspid systolic velocities suggests peak right ventricular systolic pressure of 16mmHg.
[2017-11-14 20:00] VITALS: BP 143/101
[2017-11-15] VITALS: BP 138/106
[2017-11-15 04:00] VITALS: BP 158/112
[2017-11-15] MEDS: Piperacillin/Tazobactam 3.375 GM in D5W 110 ML IVPB SCH ×3 (05:41→21:07)
[2017-11-15 07:45] LABS: HEMATOCRIT 39.6 % (42.0-52.0); HEMOGLOBIN 12.6 G/DL (14.2-18.0); MEAN CORPUSCULAR VOLUME 79 FL (80-99); PLATELET COUNT 273 K/UL (150-450); RED BLOOD COUNT 5.03 M/UL (4.70-6.10); RED CELL DISTRIBUTION WIDTH 14.4 % (11.6-14.8)
[2017-11-15] MEDS: Albuterol/Ipratropium 3ml neb HHN PRN ×2 (07:47→13:50)
[2017-11-15 07:57] LABS: ANION GAP 10 mmol/L (5-15); BLOOD UREA NITROGEN 43 mg/dL (7-18); CALCIUM 8.9 MG/DL (8.5-10.1); CARBON DIOXIDE 27 MMOL/L (21-32); CHLORIDE 105 MMOL/L (98-107); CREATININE 2.7 MG/DL (0.55-1.30); POTASSIUM 3.2 MMOL/L (3.5-5.1); SODIUM 141 MMOL/L (136-145)
[2017-11-15 08:00] VITALS: BP 155/90
[2017-11-15] MEDS: Theophylline ER 100mg ORAL SCH ×2 (08:33→21:07)
[2017-11-15] MEDS: Solu-MEDROL 40mg Inj IVP SCH (08:35)
[2017-11-15] MEDS: Heparin 5000 units/ml inj SUBQ SCH ×3 (08:36→20:47)
--- NOTE | 2017-11-15 09:15 | Nephrology Progress Note ---
Assessment/Plan Assessment 1.RASHEL 2.CKD 3.Hypokalemia 4.COPD 5.HTN Plan d/c Toradol Hold lisinopril continue norvasc 10 mg add hydralazin 25 mg tid us of kidney avoid NSAID Subjective Constitutional: Reports: no symptoms HEENT: Reports: no symptoms Genitourinary: Reports: no symptoms Neurologic/Psychiatric: Reports: no symptoms Subjective alert and awake c/o mild sob and cough Objective Objective Last 24 Hour Vital Signs Date Time Temp Pulse Resp B/P (MAP) Pulse Ox O2 Delivery O2 Flow Rate FiO2 11/15/17 08:34 106 155/90 11/15/17 05:42 158/112 11/15/17 04:00 110 11/15/17 04:00 97.5 94 21 158/112 (127) 95 97.5 11/15/17 00:00 97.7 102 20 138/106 (117) 95 97.7 11/14/17 21:38 143/101 11/14/17 21:00 Room Air 11/14/17 20:00 98.1 106 21 143/101 (115) 95 98.1 11/14/17 20:00 94 Nasal Cannula 2.0 28 11/14/17 20:00 104 11/14/17 20:00 Nasal Cannula 2.0 28 11/14/17 19:30 102 20 Nasal Cannula 2.0 28 11/14/17 18:18 104 146/102 11/14/17 16:00 104 11/14/17 16:00 97.2 103 20 146/102 (117) 98 97.2 11/14/17 14:18 147/113 11/14/17 12:00 101 11/14/17 12:00 96.4 101 18 147/113 (124) 96 96.4 11/14/17 09:35 Nasal Cannula 2.0 28 11/14/17 09:35 93 Nasal Cannula 2.0 28 Intake and Output 11/14/17 11/15/17 19:00 07:00 Intake Total 2020.0 ml Output Total 1300 ml 1200 ml Balance 720.0 ml -1200 ml Intake Oral 1080 ml IV Total 940.0 ml Output Urine Total 1300 ml 1200 ml # Bowel Movements 1 Laboratory Tests 11/14/17 18:20: Urine Eosinophils None seen, Urine Random Creatinine [Pending], Urine Random Microalbumin [Pending], Urine Random Total Protein 67H, Urine Random Sodium < 20L, Urine Creatinine 116.5, Urine Microalbumin/Creatinine Ratio [Pending] 11/15/17 05:30: White Blood Count 33.9*H, Red Blood Count 5.03, Hemoglobin 12.6L, Hematocrit 39.6L, Mean Corpuscular Volume 79L, Mean Corpuscular Hemoglobin 25.0L, Mean Corpuscular Hemoglobin Concent 31.7L, Red Cell Distribution Width 14.4, Platelet Count 273, Mean Platelet Volume 7.5, Neutrophils (%) (Auto) , Lymphocytes (%) (Auto) , Monocytes (%) (Auto) , Eosinophils (%) (Auto) , Basophils (%) (Auto) , Neutrophils % (Manual) [Pending], Lymphocytes % (Manual) [Pending], Platelet Estimate [Pending], Platelet Morphology [Pending], Sodium Level 141, Potassium Level 3.2L, Chloride Level 105, Carbon Dioxide Level 27, Anion Gap 10, Blood Urea Nitrogen 43H, Creatinine 2.7H, Estimat Glomerular Filtration Rate 29.6, Glucose Level 115H, Calcium Level 8.9 Height (Feet): 5 Height (Inches): 7.00 Weight (Pounds): 188 Objective HEENT: normocephalic, atraumatic, PERRL, EOMI, supple, no JVD Neck: non-tender, supple Respiratory/Chest: chest wall non-tender, no accessory muscle use, decreased breath sounds Cardiovascular/Chest: normal peripheral pulses, normal rate - SR, no JVD Abdomen: normal bowel sounds, soft Extremities: no edema,clubbing or cyanosis Staci Blum MD Nov 15, 2017 09:15
--- NOTE | 2017-11-15 11:13 | General Progress Note ---
Assessment/Plan Problem List: (1) CKD (chronic kidney disease) ICD Codes: N18.9 - Chronic kidney disease, unspecified SNOMED: 297323092 Qualifiers: Qualified Codes: N18.9 - Chronic kidney disease, unspecified (2) Malignant hypertension ICD Codes: I10 - Essential (primary) hypertension SNOMED: 24187996 Status: unchanged Assessment/Plan bp control pain control neph f/u cbc bmp am Subjective Constitutional: Reports: weakness Allergies: Coded Allergies: No Known Allergies (Unverified , 12/23/11) All Systems: reviewed and negative except above Subjective o2nc calm in bed Objective Last 24 Hour Vital Signs Date Time Temp Pulse Resp B/P (MAP) Pulse Ox O2 Delivery O2 Flow Rate FiO2 11/15/17 08:34 106 155/90 11/15/17 07:54 94 22 98 Nasal Cannula 2.0 28 11/15/17 07:48 94 24 Nasal Cannula 2.0 28 11/15/17 07:48 Nasal Cannula 2.0 28 11/15/17 07:48 96 Nasal Cannula 2.0 28 11/15/17 07:47 92 28 94 Nasal Cannula 2.0 28 11/15/17 05:42 158/112 11/15/17 04:00 110 11/15/17 04:00 97.5 94 21 158/112 (127) 95 97.5 11/15/17 00:00 97.7 102 20 138/106 (117) 95 97.7 11/14/17 21:38 143/101 11/14/17 21:00 Room Air 11/14/17 20:00 98.1 106 21 143/101 (115) 95 98.1 11/14/17 20:00 94 Nasal Cannula 2.0 28 11/14/17 20:00 104 11/14/17 20:00 Nasal Cannula 2.0 28 11/14/17 19:30 102 20 Nasal Cannula 2.0 28 11/14/17 18:18 104 146/102 11/14/17 16:00 104 11/14/17 16:00 97.2 103 20 146/102 (117) 98 97.2 11/14/17 14:18 147/113 11/14/17 12:00 101 11/14/17 12:00 96.4 101 18 147/113 (124) 96 96.4 Intake and Output 11/14/17 11/15/17 19:00 07:00 Intake Total 2020.0 ml Output Total 1300 ml 1200 ml Balance 720.0 ml -1200 ml Intake Oral 1080 ml IV Total 940.0 ml Output Urine Total 1300 ml 1200 ml # Bowel Movements 1 Laboratory Tests 11/14/17 18:20: Urine Eosinophils None seen, Urine Random Creatinine [Pending], Urine Random Microalbumin [Pending], Urine Random Total Protein 67H, Urine Random Sodium < 20L, Urine Creatinine 116.5, Urine Microalbumin/Creatinine Ratio [Pending] 11/15/17 05:30: White Blood Count , Red Blood Count 5.03, Hemoglobin 12.6L, Hematocrit 39.6L, Mean Corpuscular Volume 79L, Mean Corpuscular Hemoglobin 25.0L, Mean Corpuscular Hemoglobin Concent 31.7L, Red Cell Distribution Width 14.4, Platelet Count 273, Mean Platelet Volume 7.5, Neutrophils (%) (Auto) , Lymphocytes (%) (Auto) , Monocytes (%) (Auto) , Eosinophils (%) (Auto) , Basophils (%) (Auto) , Differential Total Cells Counted 100, Neutrophils % ( Manual) 86H, Lymphocytes % (Manual) 10L, Monocytes % (Manual) 4, Eosinophils % ( Manual) 0, Basophils % (Manual) 0, Band Neutrophils 0, Platelet Estimate Adequate, Platelet Morphology Normal, Red Blood Cell Morphology Normal, Anisocytosis , Sodium Level 141, Potassium Level 3.2L, Chloride Level 105, Carbon Dioxide Level 27, Anion Gap 10, Blood Urea Nitrogen 43H, Creatinine 2.7H , Estimat Glomerular Filtration Rate 29.6, Glucose Level 115H, Calcium Level 8.9 Height (Feet): 5 Height (Inches): 7.00 Weight (Pounds): 188 General Appearance: alert EENT: normal ENT inspection Neck: normal alignment Cardiovascular: normal peripheral pulses, normal rate, regular rhythm Respiratory/Chest: chest wall non-tender, decreased breath sounds Abdomen: normal bowel sounds, non tender, soft Extremities: normal inspection Edema: no edema noted Arm (L), no edema noted Arm (R), no edema noted Leg (L), no edema noted Leg (R), no edema noted Pedal (L), no edema noted Pedal (R), no edema noted Generalized Neurologic: responsive, motor weakness Skin: normal pigmentation, warm/dry Jossue Mane DO Nov 15, 2017 11:13
[2017-11-15 12:00] VITALS: BP 156/90
[2017-11-15] MEDS: D5 1/2NS 1,000 ML IV SCH (13:35)
[2017-11-15 16:00] VITALS: BP 156/102
--- NOTE | 2017-11-15 17:15 | Diagnostic Imaging Report ---
Indication: Acute renal failure Technique: Grayscale and duplex images of the kidneys, retroperitoneum, and bladder were obtained. Comparison: none Findings: Right kidney measures 6.5 cm in length. Left kidney measures 11.6 cm in length. Both kidneys demonstrate increased echogenicity. There is fullness to the left renal collecting system versus the left renal parapelvic cyst. There is an upper pole left renal cortical cyst. No right hydronephrosis No focal abnormality. Normal inferior vena cava. Bladder is normal. The prostate is prominent, demonstrates a TURP defect. Calculated volume is 39 mL Impression: Atrophic echogenic right kidney, consistent with chronic medical renal disease Equivocally increased left renal echogenicity, could indicate medical renal disease Mild left renal pelvic fullness versus parapelvic cyst, favor the former Prominent prostate with a TURP defect. Incidental finding left upper pole renal cortical cyst
[2017-11-15 20:00] VITALS: BP 158/119
--- NOTE | 2017-11-15 23:57 | Cardiology Progress Note ---
Assessment/Plan Assessment/Plan 1. HTN emergency, continue with amlodipine and clonidine, may have to add carvedilol. 2. Hypertensive heart disease 3. CKD 4. Large right lung bullae formation. 5. COPD Subjective Subjective Sinus tachycardia at 110. Objective Last 24 Hour Vital Signs Date Time Temp Pulse Resp B/P (MAP) Pulse Ox O2 Delivery O2 Flow Rate FiO2 11/15/17 21:07 158/119 11/15/17 21:00 Room Air 11/15/17 20:09 Nasal Cannula 2.0 28 11/15/17 20:08 97 Nasal Cannula 2.0 28 11/15/17 20:00 114 11/15/17 20:00 97.7 107 22 158/119 (132) 96 97.7 11/15/17 16:00 119 11/15/17 16:00 97.4 111 22 156/102 (120) 100 97.4 11/15/17 14:18 170/106 11/15/17 13:57 105 22 100 Nasal Cannula 2.0 28 11/15/17 13:50 111 24 98 Nasal Cannula 2.0 28 11/15/17 12:00 97.4 111 18 156/90 (112) 98 97.4 11/15/17 12:00 106 11/15/17 09:00 Room Air 11/15/17 08:34 106 155/90 11/15/17 08:00 97.3 96 18 155/90 (111) 98 97.3 11/15/17 08:00 112 11/15/17 07:54 94 22 98 Nasal Cannula 2.0 28 11/15/17 07:48 94 24 Nasal Cannula 2.0 28 11/15/17 07:48 Nasal Cannula 2.0 28 11/15/17 07:48 96 Nasal Cannula 2.0 28 11/15/17 07:47 92 28 94 Nasal Cannula 2.0 28 11/15/17 05:42 158/112 11/15/17 04:00 110 11/15/17 04:00 97.5 94 21 158/112 (127) 95 97.5 11/15/17 00:00 97.7 102 20 138/106 (117) 95 97.7 Intake and Output 11/14/17 11/15/17 19:00 07:00 Intake Total 2020.0 ml Output Total 1300 ml 1200 ml Balance 720.0 ml -1200 ml Intake Oral 1080 ml IV Total 940.0 ml Output Urine Total 1300 ml 1200 ml # Bowel Movements 1 2D Echo: LVEF 55%, Mild LVH, Mold MR, RVSP within normal limits Laboratory Tests Test 11/15/17 05:30 White Blood Count K/UL (4.8-10.8) Red Blood Count 5.03 M/UL (4.70-6.10) Hemoglobin 12.6 G/DL (14.2-18.0) L Hematocrit 39.6 % (42.0-52.0) L Mean Corpuscular Volume 79 FL (80-99) L Mean Corpuscular Hemoglobin 25.0 PG (27.0-31.0) L Mean Corpuscular Hemoglobin Concent 31.7 G/DL (32.0-36.0) L Red Cell Distribution Width 14.4 % (11.6-14.8) Platelet Count 273 K/UL (150-450) Mean Platelet Volume 7.5 FL (6.5-10.1) Neutrophils (%) (Auto) % (45.0-75.0) Lymphocytes (%) (Auto) % (20.0-45.0) Monocytes (%) (Auto) % (1.0-10.0) Eosinophils (%) (Auto) % (0.0-3.0) Basophils (%) (Auto) % (0.0-2.0) Differential Total Cells Counted 100 Neutrophils % (Manual) 86 % (45-75) H Lymphocytes % (Manual) 10 % (20-45) L Monocytes % (Manual) 4 % (1-10) Eosinophils % (Manual) 0 % (0-3) Basophils % (Manual) 0 % (0-2) Band Neutrophils 0 % (0-8) Platelet Estimate Adequate Platelet Morphology Normal Red Blood Cell Morphology Normal Anisocytosis Sodium Level 141 MMOL/L (136-145) Potassium Level 3.2 MMOL/L (3.5-5.1) L Chloride Level 105 MMOL/L (98-107) Carbon Dioxide Level 27 MMOL/L (21-32) Anion Gap 10 mmol/L (5-15) Blood Urea Nitrogen 43 mg/dL (7-18) H Creatinine 2.7 MG/DL (0.55-1.30) H Estimat Glomerular Filtration Rate 29.6 mL/min (>60) Glucose Level 115 MG/DL (74-106) H Calcium Level 8.9 MG/DL (8.5-10.1) Objective HEENT: normocephalic, atraumatic, bilateral eye PERRL, bilateral eye EOMI Neck: No JVD, no carotid bruit. Respiratory: lungs clear, normal breath sounds Cardiovascular: Normal S1S2, regular rate, rhythm, no murmurs, gallops or rubs. Gastrointestinal: normal bowel sounds, non tender, no mass, no organomegaly, no bruit, non-distended Musculoskeletal: No edema, clubbing or cyanosis. Chang Peterson MD Nov 15, 2017 23:57
[2017-11-16] VITALS (8 sets, daily range): BP systolic 131–180; BP diastolic 94–126
--- NOTE | 2017-11-16 02:00 | Consultation ---
DATE OF CONSULTATION: 11/13/2017 CARDIOLOGY CONSULTATION CONSULTING PHYSICIAN: Chang Peterson M.D. REFERRING PHYSICIAN: Jossue Mane D.O. REASON FOR CONSULTATION: Management of accelerated hypertension. HISTORY OF PRESENT ILLNESS: The patient is a very unfortunate 57-year-old gentleman, who presents to the hospital with complaints of shortness of breath. He has diagnosis of chronic hypertension and being compliant with his blood pressure medication. He states that his cousin gave him his inhaler, which relieved his shortness of breath to some extent. The patient denies any fever, chills, or cough. He has had similar symptoms in the past. On arrival to the emergency department, his blood pressure was 202/133 mmHg and heart rate of 105. He was admitted to telemetry for further evaluation and management. PAST MEDICAL HISTORY: Hypertension. PAST SURGICAL HISTORY: None. LIST OF MEDICATIONS: 1. Amlodipine 10 mg p.o. daily. 2. Catapres 0.1 mg q.8 h. 3. Hydrochlorothiazide 25 mg daily. 4. Ibuprofen 600 mg q.8 h. p.r.n. pain. 5. Bactrim 160/800 one tablet twice a day. ALLERGIES: No known drug allergies. FAMILY HISTORY: No premature coronary artery disease or arrhythmogenic in the first-degree relatives. SOCIAL HISTORY: Continues to smoke cigarettes. Denies any alcohol or illicit drug use. REVIEW OF SYSTEM: HEENT: Denies any headache, diplopia, or blurred vision. CONSTITUTIONAL: Denies any fever, chills, night sweats, or weight loss. CARDIOVASCULAR: Denies any chest pain. Shortness of breath as mentioned above. Worse with exertion. Denies any PND, orthopnea, leg swelling, or syncope. PULMONARY: Denies any cough, hemoptysis, or wheezing. GASTROINTESTINAL: Denies any nausea, vomiting, diarrhea, constipation, abdominal pain, or GI bleed. EXTREMITIES: No evidence of edema, clubbing, or cyanosis. GENITOURINARY: Denies any hematuria, dysuria, or incontinence. NEUROLOGY: Denies any motor dysfunction, sensory deficit, or altered speech. PHYSICAL EXAMINATION: VITAL SIGNS: Blood pressure was 202/133, heart rate of 105, respirations 22, O2 saturation 95% on room air, and temperature 98.3 degrees Fahrenheit. GENERAL: The patient is a very unfortunate 57-year-old gentleman, in no apparent respiratory distress. Alert and awake. HEENT: Atraumatic and normocephalic. Anicteric. Pupils are equal, round, and reactive to light and accommodation. Extraocular muscles intact. NECK: JVP less than 5 cm. No carotid bruits. Carotid upstrokes 2+ bilaterally. CVS: Normal S1 and S2. Regular rate and rhythm. Tachycardic. No murmurs, gallops, or rubs. PMI is at fourth intercostal space in the midclavicular line. LUNGS: Clear to auscultation bilaterally. ABDOMEN: Soft, nontender, and nondistended. No hepatosplenomegaly. Positive bowel sounds. EXTREMITIES: No evidence of edema, clubbing, or cyanosis. LABORATORY FINDINGS: WBC was 11.0, hemoglobin of 14.0, hematocrit of 42.9, and platelet count was 279,000. Sodium was 142, potassium is 3.8, chloride 102, bicarbonate 31, BUN of 27, creatinine 2.7, and glucose of 162. Calcium is 8.7. Troponin I is 0.038. ProBNP was 2637. INR is 1.0. Toxicology was negative. DIAGNOSTIC DATA: Chest x-ray showed mild interstitial edema. No airspace consolidation and intermittent changes with large right upper lobe bullae formation. A 2D echocardiography showed normal LV systolic function with LVEF of about 60% to 65%, mild left ventricular hypertrophy, small posterior pericardial effusion, mild mitral regurgitation, and right ventricular systolic pressure measured at 16 mmHg. ASSESSMENT AND PLAN: The patient is a very unfortunate 57-year-old gentleman seen in Cardiology consultation at the request of Dr. Mane. 1. Accelerated hypertension. I will continue with amlodipine. Also add clonidine. Agree with hydralazine and labetalol IV on p.r.n. basis. 2. The goal of blood pressure is to keep it less than 140/90 mmHg. 3. Salt restriction advised. 4. Normal left ventricular systolic function with normal wall motion. I would like to thank, Dr. Mane, for allowing me to participate in the care of this patient. Chang Peterson M.D. DR: CELENA JOB#: [id number] CC:
[2017-11-16] MEDS: Piperacillin/Tazobactam 3.375 GM in D5W 110 ML IVPB SCH (05:53)
[2017-11-16] MEDS: D5 1/2NS 1,000 ML IV SCH (06:01)
[2017-11-16 08:36] LABS: HEMATOCRIT 41.9 % (42.0-52.0); HEMOGLOBIN 13.8 G/DL (14.2-18.0); MEAN CORPUSCULAR VOLUME 78 FL (80-99); PLATELET COUNT 300 K/UL (150-450); RED BLOOD COUNT 5.37 M/UL (4.70-6.10); RED CELL DISTRIBUTION WIDTH 14.6 % (11.6-14.8)
[2017-11-16 08:44] LABS: WHITE BLOOD COUNT 33.9 K/UL (4.8-10.8)
[2017-11-16 08:46] LABS: WHITE BLOOD COUNT 29.9 K/UL (4.8-10.8)
[2017-11-16] MEDS: Heparin 5000 units/ml inj SUBQ SCH ×2 (09:00→21:00)
[2017-11-16 09:04] LABS: ANION GAP 12 mmol/L (5-15); BLOOD UREA NITROGEN 40 mg/dL (7-18); CALCIUM 8.6 MG/DL (8.5-10.1); CARBON DIOXIDE 26 MMOL/L (21-32); CHLORIDE 102 MMOL/L (98-107); CREATININE 2.4 MG/DL (0.55-1.30); POTASSIUM 2.8 MMOL/L (3.5-5.1); SODIUM 140 MMOL/L (136-145)
[2017-11-16] MEDS: Theophylline ER 100mg ORAL SCH ×2 (09:05→21:40)
[2017-11-16] MEDS: Solu-MEDROL 40mg Inj IVP SCH (09:05)
--- NOTE | 2017-11-16 10:23 | Pulmonology Progress Note ---
Assessment/Plan Problems: (1) Malignant hypertension (2) COPD with exacerbation (3) Hypertension Assessment/Plan add hydralazine 50 q8 hours renal US noted, chronic renal disease, d/c iv fluid, current bun/creatinine is probably chronic dc steroids, causing leukocytosis dc abx, afebrile, repeat cxr and bnp today Subjective ROS Limited/Unobtainable: No HEENT: Repors: no symptoms Respiratory: Reports: no symptoms Cardiovascular: Reports: no symptoms Allergies: Coded Allergies: No Known Allergies (Unverified , 12/23/11) Objective Last 24 Hour Vital Signs Date Time Temp Pulse Resp B/P (MAP) Pulse Ox O2 Delivery O2 Flow Rate FiO2 11/16/17 09:05 105 131/94 11/16/17 08:00 97.1 105 20 131/94 (106) 97 97.1 11/16/17 07:32 Room Air 21 11/16/17 07:32 97 Room Air 21 11/16/17 07:32 109 19 Room Air 21 11/16/17 05:54 165/120 11/16/17 05:53 165/120 11/16/17 04:00 97.5 101 23 160/120 (133) 99 97.5 11/16/17 04:00 109 11/16/17 00:08 171/112 11/16/17 00:00 97.5 107 22 171/112 (131) 94 97.5 11/16/17 00:00 106 11/15/17 21:07 158/119 11/15/17 21:00 Room Air 11/15/17 20:09 Nasal Cannula 2.0 28 11/15/17 20:08 97 Nasal Cannula 2.0 28 11/15/17 20:00 114 11/15/17 20:00 97.7 107 22 158/119 (132) 96 97.7 11/15/17 16:00 119 11/15/17 16:00 97.4 111 22 156/102 (120) 100 97.4 11/15/17 14:18 170/106 11/15/17 13:57 105 22 100 Nasal Cannula 2.0 28 11/15/17 13:50 111 24 98 Nasal Cannula 2.0 28 11/15/17 12:00 97.4 111 18 156/90 (112) 98 97.4 11/15/17 12:00 106 Intake and Output 11/15/17 11/16/17 19:00 07:00 Intake Total 855 ml Output Total 1000 ml 1200 ml Balance -145 ml -1200 ml Intake Oral 855 ml Output Urine Total 1000 ml 1200 ml General Appearance: WD/WN HEENT: normocephalic, atraumatic Respiratory/Chest: chest wall non-tender, lungs clear Cardiovascular: normal peripheral pulses, normal rate Abdomen: normal bowel sounds, no organomegaly Genitourinary: normal external genitalia Extremities: no cyanosis, no clubbing Skin: no rash Laboratory Tests 11/16/17 08:15: White Blood Count 29.9*H, Red Blood Count 5.37, Hemoglobin 13.8L, Hematocrit 41.9L, Mean Corpuscular Volume 78L, Mean Corpuscular Hemoglobin 25.7L, Mean Corpuscular Hemoglobin Concent 32.9, Red Cell Distribution Width 14.6, Platelet Count 300, Mean Platelet Volume 7.6, Neutrophils (%) (Auto) , Lymphocytes (%) ( Auto) , Monocytes (%) (Auto) , Eosinophils (%) (Auto) , Basophils (%) (Auto) , Neutrophils % (Manual) [Pending], Lymphocytes % (Manual) [Pending], Platelet Estimate [Pending], Platelet Morphology [Pending], Sodium Level 140, Potassium Level 2.8L, Chloride Level 102, Carbon Dioxide Level 26, Anion Gap 12, Blood Urea Nitrogen 40H, Creatinine 2.4H, Estimat Glomerular Filtration Rate 33.8, Glucose Level 181H, Calcium Level 8.6 Current Medications Medications (Trade) Dose Ordered Sig/Kathleen Route PRN Reason Start Time Stop Time Status Last Admin Dose Admin Acetaminophen (Tylenol) 650 mg Q4H PRN ORAL Fever/Headache/Mild Pain 11/13/17 11:55 12/13/17 11:54 Albuterol/ Ipratropium (Albuterol/ Ipratropium) 3 ml Q4H PRN HHN dyspnea 11/13/17 11:30 11/18/17 11:29 11/15/17 13:50 Amlodipine Besylate (Norvasc) 10 mg DAILY ORAL 11/14/17 09:00 12/14/17 08:59 11/16/17 09:05 Clonidine HCl (Catapres Tab) 0.1 mg Q8HR ORAL 11/13/17 14:00 12/13/17 13:59 11/16/17 05:54 Dextrose (Dextrose 50%) 25 ml STAT PRN IV Hypoglycemia 11/13/17 11:30 12/13/17 11:29 Dextrose (Dextrose 50%) 50 ml STAT PRN IV Hypoglycemia 11/13/17 11:30 12/13/17 11:29 Dextrose/Sodium Chloride 1,000 ml @ 60 mls/hr [id number] IV 11/13/17 11:55 12/13/17 11:54 11/16/17 06:01 Heparin Sodium (Porcine) (Heparin 5000 units/ml) 5,000 units EVERY 12 HOURS SUBQ 11/13/17 21:00 12/13/17 20:59 Hydralazine HCl (Apresoline) 20 mg Q4H PRN IV sbp more than 160 11/13/17 11:30 12/13/17 11:29 11/16/17 05:53 Labetalol HCl (Normodyne) 20 mg Q1H PRN IV sbp more than 180 11/13/17 11:30 12/13/17 11:29 Lorazepam (Ativan 2mg/ml 1ml) 0.5 mg Q4H PRN IV For Anxiety 11/13/17 11:30 11/20/17 11:29 Methylprednisolone Sodium Succinate (Solu-MEDROL) 40 mg DAILY IVP 11/15/17 09:00 12/13/17 19:59 11/16/17 09:05 Morphine Sulfate (Morphine Sulfate) 2 mg Q4H PRN IVP severe pain 7-10 11/13/17 11:30 11/20/17 11:29 11/13/17 14:03 Nitroglycerin (Ntg) 0.4 mg Q5M X 3 DOSES PRN SL Prn Chest Pain 11/13/17 11:30 12/13/17 11:29 Ondansetron HCl (Zofran) 4 mg Q6H PRN IVP Nausea & Vomiting 11/13/17 11:30 12/13/17 11:29 Piperacillin Sod/ Tazobactam Sod 3.375 gm/Dextrose 110 ml @ 27.5 mls/hr EVERY 8 HOURS IVPB 11/13/17 13:00 11/18/17 12:59 11/16/17 05:53 Promethazine HCl/ Codeine (Phenergan with Codeine) 5 ml Q6H PRN ORAL cough 11/13/17 11:30 12/13/17 11:29 Temazepam (Restoril) 15 mg HSPRN PRN ORAL Insomnia 11/13/17 11:30 11/20/17 11:29 Theophylline (Rosendo-Dur) 100 mg EVERY 12 HOURS ORAL 11/13/17 21:00 12/13/17 20:59 11/16/17 09:05 Jason Astorga MD Nov 16, 2017 10:23
--- NOTE | 2017-11-16 11:35 | Diagnostic Imaging Report ---
Indication: Dyspnea Comparison: 11/13/2017 A single view chest radiograph was obtained. Findings: There is a well-circumscribed hyperlucency in the right upper lobe likely bullous disease. Findings noted previously also. Heart is enlarged. Hazy groundglass opacities noted bilaterally. Aorta is ectatic. IMPRESSION: Suspected CHF/interstitial edema. 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
[2017-11-16] MEDS: HydrALAZINE 50mg tab ORAL SCH ×2 (14:26→21:40)
--- NOTE | 2017-11-16 14:52 | Cardiology Report ---
APPROVED REPORT EKG Measurement Heart [id number] Sinus tachycardia Biatrial enlargement Abnormal ECG
--- NOTE | 2017-11-16 14:59 | General Progress Note ---
Assessment/Plan Problem List: (1) CKD (chronic kidney disease) ICD Codes: N18.9 - Chronic kidney disease, unspecified SNOMED: 791939908 Qualifiers: Qualified Codes: N18.9 - Chronic kidney disease, unspecified (2) Malignant hypertension ICD Codes: I10 - Essential (primary) hypertension SNOMED: [id number] Status: stable, progressing Assessment/Plan bp control pain control neph f/u cbc bmp am Subjective Constitutional: Reports: weakness Allergies: Coded Allergies: No Known Allergies (Unverified , 12/23/11) All Systems: reviewed and negative except above Subjective calm in bed Objective Last 24 Hour Vital Signs Date Time Temp Pulse Resp B/P (MAP) Pulse Ox O2 Delivery O2 Flow Rate FiO2 11/16/17 14:26 160/112 11/16/17 14:26 160/112 11/16/17 12:00 96.4 107 20 155/110 (125) 97 96.4 11/16/17 12:00 105 11/16/17 09:05 105 131/94 11/16/17 09:00 Room Air 11/16/17 08:00 118 11/16/17 08:00 97.1 105 20 131/94 (106) 97 97.1 11/16/17 07:32 Room Air 21 11/16/17 07:32 97 Room Air 21 11/16/17 07:32 109 19 Room Air 21 11/16/17 05:54 165/120 11/16/17 05:53 165/120 11/16/17 04:00 97.5 101 23 160/120 (133) 99 97.5 11/16/17 04:00 109 11/16/17 00:08 171/112 11/16/17 00:00 97.5 107 22 171/112 (131) 94 97.5 11/16/17 00:00 106 11/15/17 21:07 158/119 11/15/17 21:00 Room Air 11/15/17 20:09 Nasal Cannula 2.0 28 11/15/17 20:08 97 Nasal Cannula 2.0 28 11/15/17 20:00 114 11/15/17 20:00 97.7 107 22 158/119 (132) 96 97.7 11/15/17 16:00 119 11/15/17 16:00 97.4 111 22 156/102 (120) 100 97.4 Intake and Output 11/15/17 11/16/17 19:00 07:00 Intake Total 855 ml Output Total 1000 ml 1200 ml Balance -145 ml -1200 ml Intake Oral 855 ml Output Urine Total 1000 ml 1200 ml Laboratory Tests 11/16/17 08:15: White Blood Count 29.9*H, Red Blood Count 5.37, Hemoglobin 13.8L, Hematocrit 41.9L, Mean Corpuscular Volume 78L, Mean Corpuscular Hemoglobin 25.7L, Mean Corpuscular Hemoglobin Concent 32.9, Red Cell Distribution Width 14.6, Platelet Count 300, Mean Platelet Volume 7.6, Neutrophils (%) (Auto) , Lymphocytes (%) ( Auto) , Monocytes (%) (Auto) , Eosinophils (%) (Auto) , Basophils (%) (Auto) , Differential Total Cells Counted 100, Neutrophils % (Manual) 75, Lymphocytes % ( Manual) 19L, Monocytes % (Manual) 5, Eosinophils % (Manual) 0, Basophils % ( Manual) 0, Myelocytes % 1H, Band Neutrophils 0, Platelet Estimate Adequate, Platelet Morphology Normal, Anisocytosis 2+, Microcytosis 2+, Sodium Level 140, Potassium Level 2.8L, Chloride Level 102, Carbon Dioxide Level 26, Anion Gap 12 , Blood Urea Nitrogen 40H, Creatinine 2.4H, Estimat Glomerular Filtration Rate 33.8, Glucose Level 181H, Calcium Level 8.6, Pro-B-Type Natriuretic Peptide 3169H Height (Feet): 5 Height (Inches): 7.00 Weight (Pounds): 188 General Appearance: alert EENT: normal ENT inspection Neck: normal alignment Cardiovascular: normal peripheral pulses, normal rate, regular rhythm Respiratory/Chest: chest wall non-tender, lungs clear, normal breath sounds Abdomen: normal bowel sounds, non tender, soft Extremities: normal inspection Edema: no edema noted Arm (L), no edema noted Arm (R), no edema noted Leg (L), no edema noted Leg (R), no edema noted Pedal (L), no edema noted Pedal (R), no edema noted Generalized Neurologic: motor weakness Skin: normal pigmentation, warm/dry Jossue Mane DO Nov 16, 2017 14:59
--- NOTE | 2017-11-16 23:33 | Cardiology Progress Note ---
Assessment/Plan Assessment/Plan 1. HTN emergency, continue with amlodipine and clonidine, add carvedilol as he is still tachycardic. 2. Hypertensive heart disease 3. CKD with RASHEL, creatinine down to 2.4 4. Large right lung bullae formation. 5. COPD Subjective Subjective Sinus tachycardia at 106. Objective Last 24 Hour Vital Signs Date Time Temp Pulse Resp B/P (MAP) Pulse Ox O2 Delivery O2 Flow Rate FiO2 11/16/17 22:26 103 178/116 (136) 11/16/17 21:40 180/116 11/16/17 21:40 180/116 11/16/17 21:38 106 180/116 (137) 11/16/17 20:45 Room Air 21 11/16/17 20:45 97 Room Air 21 11/16/17 20:00 97.3 101 24 172/126 (141) 98 97.3 11/16/17 20:00 107 11/16/17 16:00 97 11/16/17 16:00 97.0 108 20 165/106 (125) 96 97.0 11/16/17 14:26 160/112 11/16/17 14:26 160/112 11/16/17 12:00 96.4 107 20 155/110 (125) 97 96.4 11/16/17 12:00 105 11/16/17 09:05 105 131/94 11/16/17 09:00 Room Air 11/16/17 08:00 118 11/16/17 08:00 97.1 105 20 131/94 (106) 97 97.1 11/16/17 07:32 Room Air 21 11/16/17 07:32 97 Room Air 11/16/17 07:32 109 19 Room Air 11/16/17 05:54 165/120 11/16/17 05:53 165/120 11/16/17 04:00 97.5 101 23 160/120 (133) 99 97.5 11/16/17 04:00 109 11/16/17 00:08 171/112 11/16/17 00:00 97.5 107 22 171/112 (131) 94 97.5 11/16/17 00:00 106 Intake and Output 11/15/17 11/16/17 19:00 07:00 Intake Total 855 ml Output Total 1000 ml 1200 ml Balance -145 ml -1200 ml Intake Oral 855 ml Output Urine Total 1000 ml 1200 ml 2D Echo: LVEF 55%, Mild LVH, Mold MR, RVSP within normal limits Laboratory Tests Test 11/16/17 08:15 White Blood Count 29.9 K/UL (4.8-10.8) *H Red Blood Count 5.37 M/UL (4.70-6.10) Hemoglobin 13.8 G/DL (14.2-18.0) L Hematocrit 41.9 % (42.0-52.0) L Mean Corpuscular Volume 78 FL (80-99) L Mean Corpuscular Hemoglobin 25.7 PG (27.0-31.0) L Mean Corpuscular Hemoglobin Concent 32.9 G/DL (32.0-36.0) Red Cell Distribution Width 14.6 % (11.6-14.8) Platelet Count 300 K/UL (150-450) Mean Platelet Volume 7.6 FL (6.5-10.1) Neutrophils (%) (Auto) % (45.0-75.0) Lymphocytes (%) (Auto) % (20.0-45.0) Monocytes (%) (Auto) % (1.0-10.0) Eosinophils (%) (Auto) % (0.0-3.0) Basophils (%) (Auto) % (0.0-2.0) Differential Total Cells Counted 100 Neutrophils % (Manual) 75 % (45-75) Lymphocytes % (Manual) 19 % (20-45) L Monocytes % (Manual) 5 % (1-10) Eosinophils % (Manual) 0 % (0-3) Basophils % (Manual) 0 % (0-2) Myelocytes % 1 % (0-0) H Band Neutrophils 0 % (0-8) Platelet Estimate Adequate Platelet Morphology Normal Anisocytosis 2+ Microcytosis 2+ Sodium Level 140 MMOL/L (136-145) Potassium Level 2.8 MMOL/L (3.5-5.1) L Chloride Level 102 MMOL/L (98-107) Carbon Dioxide Level 26 MMOL/L (21-32) Anion Gap 12 mmol/L (5-15) Blood Urea Nitrogen 40 mg/dL (7-18) H Creatinine 2.4 MG/DL (0.55-1.30) H Estimat Glomerular Filtration Rate 33.8 mL/min (>60) Glucose Level 181 MG/DL (74-106) H Calcium Level 8.6 MG/DL (8.5-10.1) Pro-B-Type Natriuretic Peptide 3169 pg/mL (0-125) H Microbiology Date/Time Source Procedure Growth Status 11/15/17 07:32 Sputum Expectorated Gram Stain - Final Resulted 11/15/17 07:32 Sputum Expectorated Sputum Culture Pending Resulted Objective HEENT: normocephalic, atraumatic, bilateral eye PERRL, bilateral eye EOMI Neck: No JVD, no carotid bruit. Respiratory: lungs clear, normal breath sounds Cardiovascular: Normal S1S2, regular rate, rhythm, no murmurs, gallops or rubs. Gastrointestinal: normal bowel sounds, non tender, no mass, no organomegaly, no bruit, non-distended Musculoskeletal: No edema, clubbing or cyanosis. Chang Peterson MD Nov 16, 2017 23:33
[2017-11-17] VITALS (7 sets, daily range): BP systolic 143–178; BP diastolic 99–123
[2017-11-17] MEDS: HydrALAZINE 50mg tab ORAL SCH ×3 (05:50→21:12)
[2017-11-17 07:24] LABS: HEMATOCRIT 39.7 % (42.0-52.0); MEAN CORPUSCULAR VOLUME 78 FL (80-99); PLATELET COUNT 313 K/UL (150-450); RED BLOOD COUNT 5.09 M/UL (4.70-6.10); RED CELL DISTRIBUTION WIDTH 14.7 % (11.6-14.8)
[2017-11-17 07:30] LABS: WHITE BLOOD COUNT 24.2 K/UL (4.8-10.8)
[2017-11-17 07:37] LABS: ANION GAP 9 mmol/L (5-15); BLOOD UREA NITROGEN 40 mg/dL (7-18); CALCIUM 8.8 MG/DL (8.5-10.1); CARBON DIOXIDE 28 MMOL/L (21-32); CHLORIDE 103 MMOL/L (98-107); CREATININE 2.2 MG/DL (0.55-1.30); POTASSIUM 3.1 MMOL/L (3.5-5.1); SODIUM 140 MMOL/L (136-145)
--- NOTE | 2017-11-17 08:07 | Nephrology Progress Note ---
Assessment/Plan Assessment 1.RASHEL 2.CKD 3.Hypokalemia 4.COPD 5.HTN Plan hold Toradol Hold lisinopril continue norvasc 10 mg hydralazin 25 mg tid us of kidney avoid NSAID Subjective Constitutional: Reports: no symptoms, malaise HEENT: Reports: no symptoms Subjective alert and awake c/o mild sob and cough Objective Objective Last 24 Hour Vital Signs Date Time Temp Pulse Resp B/P (MAP) Pulse Ox O2 Delivery O2 Flow Rate FiO2 11/17/17 05:51 99 153/122 (132) 11/17/17 05:51 153/122 11/17/17 05:50 153/122 11/17/17 04:00 117 11/17/17 04:00 97.9 107 20 156/109 (125) 99 97.9 11/17/17 00:19 178/116 11/17/17 00:00 98.1 103 20 178/123 (141) 99 98.1 11/17/17 00:00 100 11/16/17 22:26 103 178/116 (136) 11/16/17 21:40 180/116 11/16/17 21:40 180/116 11/16/17 21:38 106 180/116 (137) 11/16/17 21:00 Nasal Cannula 2.0 11/16/17 20:45 Room Air 21 11/16/17 20:45 97 Room Air 21 11/16/17 20:00 97.3 101 24 172/126 (141) 98 97.3 11/16/17 20:00 107 11/16/17 16:00 97 11/16/17 16:00 97.0 108 20 165/106 (125) 96 97.0 11/16/17 14:26 160/112 11/16/17 14:26 160/112 11/16/17 12:00 96.4 107 20 155/110 (125) 97 96.4 11/16/17 12:00 105 11/16/17 09:05 105 131/94 11/16/17 09:00 Room Air Intake and Output 11/16/17 11/17/17 19:00 07:00 Intake Total 820 ml 300 ml Output Total 700 ml Balance 120 ml 300 ml Intake Oral 820 ml Other 300 ml Output Urine Total 700 ml # Voids 3 Laboratory Tests 11/16/17 08:15: White Blood Count 29.9*H, Red Blood Count 5.37, Hemoglobin 13.8L, Hematocrit 41.9L, Mean Corpuscular Volume 78L, Mean Corpuscular Hemoglobin 25.7L, Mean Corpuscular Hemoglobin Concent 32.9, Red Cell Distribution Width 14.6, Platelet Count 300, Mean Platelet Volume 7.6, Neutrophils (%) (Auto) , Lymphocytes (%) ( Auto) , Monocytes (%) (Auto) , Eosinophils (%) (Auto) , Basophils (%) (Auto) , Differential Total Cells Counted 100, Neutrophils % (Manual) 75, Lymphocytes % ( Manual) 19L, Monocytes % (Manual) 5, Eosinophils % (Manual) 0, Basophils % ( Manual) 0, Myelocytes % 1H, Band Neutrophils 0, Platelet Estimate Adequate, Platelet Morphology Normal, Anisocytosis 2+, Microcytosis 2+, Sodium Level 140, Potassium Level 2.8L, Chloride Level 102, Carbon Dioxide Level 26, Anion Gap 12 , Blood Urea Nitrogen 40H, Creatinine 2.4H, Estimat Glomerular Filtration Rate 33.8, Glucose Level 181H, Calcium Level 8.6, Pro-B-Type Natriuretic Peptide 3169H 11/17/17 06:25: White Blood Count 24.2*H, Red Blood Count 5.09, Hemoglobin 13.0L, Hematocrit 39.7L, Mean Corpuscular Volume 78L, Mean Corpuscular Hemoglobin 25.5L, Mean Corpuscular Hemoglobin Concent 32.6, Red Cell Distribution Width 14.7, Platelet Count 313, Mean Platelet Volume 8.1, Neutrophils (%) (Auto) , Lymphocytes (%) ( Auto) , Monocytes (%) (Auto) , Eosinophils (%) (Auto) , Basophils (%) (Auto) , Neutrophils % (Manual) [Pending], Lymphocytes % (Manual) [Pending], Platelet Estimate [Pending], Platelet Morphology [Pending], Sodium Level 140, Potassium Level 3.1L, Chloride Level 103, Carbon Dioxide Level 28, Anion Gap 9, Blood Urea Nitrogen 40H, Creatinine 2.2H, Estimat Glomerular Filtration Rate 37.5, Glucose Level 105, Calcium Level 8.8 Height (Feet): 5 Height (Inches): 7.00 Weight (Pounds): 192 Objective HEENT: normocephalic, atraumatic, PERRL, EOMI, supple, no JVD Neck: non-tender, supple Respiratory/Chest: chest wall non-tender, no accessory muscle use, decreased breath sounds Cardiovascular/Chest: normal peripheral pulses, normal rate - SR, no JVD Abdomen: normal bowel sounds, soft Extremities: no edema,clubbing or cyanosis Staci Blum MD Nov 17, 2017 08:07
[2017-11-17] MEDS: Heparin 5000 units/ml inj SUBQ SCH ×2 (08:39→21:00)
[2017-11-17] MEDS: Theophylline ER 100mg ORAL SCH ×2 (08:39→21:12)
--- NOTE | 2017-11-17 09:38 | Consultation ---
History of Present Illness General Date patient seen: Nov 17, 2017 Chief Complaint: Dyspnea/Respdistress Referring physician: dr Mane Reason for Consultation: PNA Present Illness HPI Mr. Muniz is a 57 yo male with PMHx of COPD, HTN and CKD who presented to the ED on 11/13/17 with SOB and high blood pressure. He was started on Abx and solumedrol. He has been on RA most of his admit. He reports that prior to admission he had been having 2 weeks of SOB. He also ran out of his BP meds and had some headaches. He reports no other significant problems. Since starting the solumedrol his WBCs increased from 11 to 34 and are now slowly down trending. He has been afebrile. CXR shows edema. His was sick with " walking pna" last week but is better now. ID was consulted for leukocytosis and PNA Today he reports his breathing is much better and that he dose not need any oxygen. He is concerned about his hi blood pressure. PMHx: COPD HTN CKD PSHx None SocHX Current smoker No E/D FamHx No DM or CAD Allergies: Coded Allergies: No Known Allergies (Unverified , 12/23/11) Medication History Scheduled Amlodipine Besylate* (Amlodipine Besylate*), 10 MG ORAL DAILY Amlodipine Besylate* (Amlodipine Besylate*), 10 MG ORAL DAILY Clonidine Hcl* (Catapres*), 0.1 MG ORAL Q8H Hydrochlorothiazide* (Hydrochlorothiazide*), 25 MG ORAL DAILY Hydrochlorothiazide* (Hydrochlorothiazide*), 25 MG ORAL DAILY Hydrochlorothiazide* (Hydrochlorothiazide*), 25 MG ORAL DAILY Trimethoprim/Sulfamethoxazole 160/800* (Bactrim Ds Tablet*), 1 TAB ORAL Q12H Scheduled PRN Ibuprofen* (Motrin*), 600 MG ORAL Q8H PRN for For Pain Patient History Healthcare decision maker Resuscitation status Full Code Advanced Directive on File Review of Systems All Other Systems: negative except mentioned in HPI Physical Exam Last 24 Hour Vital Signs Date Time Temp Pulse Resp B/P (MAP) Pulse Ox O2 Delivery O2 Flow Rate FiO2 11/17/17 08:39 111 145/99 11/17/17 08:39 111 145/99 11/17/17 08:00 97.2 111 20 145/99 (114) 98 97.2 9/12/18 05:51 99 153/122 (132) 11/17/17 05:51 153/122 11/17/17 05:50 153/122 11/17/17 04:00 117 11/17/17 04:00 97.9 107 20 156/109 (125) 99 97.9 11/17/17 00:19 178/116 11/17/17 00:00 98.1 103 20 178/123 (141) 99 98.1 11/17/17 00:00 100 11/16/17 22:26 103 178/116 (136) 11/16/17 21:40 180/116 11/16/17 21:40 180/116 11/16/17 21:38 106 180/116 (137) 11/16/17 21:00 Nasal Cannula 2.0 11/16/17 20:45 Room Air 21 11/16/17 20:45 97 Room Air 21 11/16/17 20:00 97.3 101 24 172/126 (141) 98 97.3 11/16/17 20:00 107 11/16/17 16:00 97 11/16/17 16:00 97.0 108 20 165/106 (125) 96 97.0 11/16/17 14:26 160/112 11/16/17 14:26 160/112 11/16/17 12:00 96.4 107 20 155/110 (125) 97 96.4 11/16/17 12:00 105 Intake and Output 11/16/17 11/17/17 19:00 07:00 Intake Total 820 ml 300 ml Output Total 700 ml Balance 120 ml 300 ml Intake Oral 820 ml Other 300 ml Output Urine Total 700 ml # Voids 3 Laboratory Tests Test 11/17/17 06:25 White Blood Count 24.2 K/UL (4.8-10.8) *H Red Blood Count 5.09 M/UL (4.70-6.10) Hemoglobin 13.0 G/DL (14.2-18.0) L Hematocrit 39.7 % (42.0-52.0) L Mean Corpuscular Volume 78 FL (80-99) L Mean Corpuscular Hemoglobin 25.5 PG (27.0-31.0) L Mean Corpuscular Hemoglobin Concent 32.6 G/DL (32.0-36.0) Red Cell Distribution Width 14.7 % (11.6-14.8) Platelet Count 313 K/UL (150-450) Mean Platelet Volume 8.1 FL (6.5-10.1) Neutrophils (%) (Auto) % (45.0-75.0) Lymphocytes (%) (Auto) % (20.0-45.0) Monocytes (%) (Auto) % (1.0-10.0) Eosinophils (%) (Auto) % (0.0-3.0) Basophils (%) (Auto) % (0.0-2.0) Neutrophils % (Manual) Pending Lymphocytes % (Manual) Pending Platelet Estimate Pending Platelet Morphology Pending Sodium Level 140 MMOL/L (136-145) Potassium Level 3.1 MMOL/L (3.5-5.1) L Chloride Level 103 MMOL/L (98-107) Carbon Dioxide Level 28 MMOL/L (21-32) Anion Gap 9 mmol/L (5-15) Blood Urea Nitrogen 40 mg/dL (7-18) H Creatinine 2.2 MG/DL (0.55-1.30) H Estimat Glomerular Filtration Rate 37.5 mL/min (>60) Glucose Level 105 MG/DL (74-106) Calcium Level 8.8 MG/DL (8.5-10.1) Height (Feet): 5 Height (Inches): 7.00 Weight (Pounds): 192 Medications Current Medications Medications (Trade) Dose Ordered Sig/Kathleen Route PRN Reason Start Time Stop Time Status Last Admin Dose Admin Acetaminophen (Tylenol) 650 mg Q4H PRN ORAL Fever/Headache/Mild Pain 11/13/17 11:55 12/13/17 11:54 Albuterol/ Ipratropium (Albuterol/ Ipratropium) 3 ml Q4H PRN HHN dyspnea 11/13/17 11:30 11/18/17 11:29 11/15/17 13:50 Amlodipine Besylate (Norvasc) 10 mg DAILY ORAL 11/14/17 09:00 12/14/17 08:59 11/17/17 08:39 Carvedilol (Coreg) 3.125 mg EVERY 12 HOURS ORAL 11/17/17 09:00 12/17/17 08:59 11/17/17 08:39 Clonidine HCl (Catapres Tab) 0.1 mg Q8HR ORAL 11/13/17 14:00 12/13/17 13:59 11/17/17 05:51 Dextrose (Dextrose 50%) 25 ml STAT PRN IV Hypoglycemia 11/13/17 11:30 12/13/17 11:29 Dextrose (Dextrose 50%) 50 ml STAT PRN IV Hypoglycemia 11/13/17 11:30 12/13/17 11:29 Heparin Sodium (Porcine) (Heparin 5000 units/ml) 5,000 units EVERY 12 HOURS SUBQ 11/13/17 21:00 12/13/17 20:59 Hydralazine HCl (Apresoline) 20 mg Q4H PRN IV sbp more than 160 11/13/17 11:30 12/13/17 11:29 11/17/17 00:19 Hydralazine HCl (Apresoline) 50 mg Q8HR ORAL 11/16/17 14:00 12/16/17 13:59 11/17/17 05:50 Labetalol HCl (Normodyne) 20 mg Q1H PRN IV sbp more than 180 11/13/17 11:30 12/13/17 11:29 Lorazepam (Ativan 2mg/ml 1ml) 0.5 mg Q4H PRN IV For Anxiety 11/13/17 11:30 11/20/17 11:29 Morphine Sulfate (Morphine Sulfate) 2 mg Q4H PRN IVP severe pain 7-10 11/13/17 11:30 11/20/17 11:29 11/13/17 14:03 Nicotine (Nicoderm) 1 patch Q24H TDERMAL 11/16/17 15:45 12/16/17 15:44 11/16/17 16:59 Nitroglycerin (Ntg) 0.4 mg Q5M X 3 DOSES PRN SL Prn Chest Pain 11/13/17 11:30 12/13/17 11:29 Ondansetron HCl (Zofran) 4 mg Q6H PRN IVP Nausea & Vomiting 11/13/17 11:30 12/13/17 11:29 Promethazine HCl/ Codeine (Phenergan with Codeine) 5 ml Q6H PRN ORAL cough 11/13/17 11:30 12/13/17 11:29 Temazepam (Restoril) 15 mg HSPRN PRN ORAL Insomnia 11/13/17 11:30 11/20/17 11:29 Theophylline (Rosendo-Dur) 100 mg EVERY 12 HOURS ORAL 11/13/17 21:00 12/13/17 20:59 11/17/17 08:39 Objective Narrative Gen: NAD, well appearing, alert, On RA HEENT: NCAT, MMM, EOMI, PERRL, No Oral lesion, no scleral icterus~ NECK: full range of motion, supple, no meningismus, No LAD, No JVD LUNGS: CTAB, No W/C, No Accessory muscle use CARDS: RRR, S1, S2, No M/R/G,~ ABD: Soft, NT, ND, No R/G, + BS, No HSM, No Masses : Deferred Ext: C/C/E, Pulses 2+ B/L (DP, Rad): NEURO: A/O x 4, Strength and Sensation Grossly intact PSYCH: mood/affect normal SKIN: warm/dry, No rashes, Assessment/Plan Assessment/Plan 57 yo male with PMHx of COPD, HTN and CKD who presented to the ED on 11/13/17 with SOB and high blood pressure. SOB resolved 2L NC and RA intermittently Likely COPD exacerbation vs CAP Afebrile 11/15 Sputum Cx NF primarily some yeast and staph Leukocytosis Reactive from Steroids Clinically doing well HTN CKD P: No sign of active infection. Agree with stopping abx as leukocytosis likely reactive 2/2 steroids 11/16 SP Zosyn 4 days Monitor CBC and Temps Supportive care Thank you for this consult. We will continue to follow the patient during this hospitalization. Sandoval Macedo MD Nov 17, 2017 09:38
--- NOTE | 2017-11-17 10:47 | Pulmonology Progress Note ---
Assessment/Plan Problems: (1) Malignant hypertension (2) COPD with exacerbation (3) Hypertension Assessment/Plan still tachycardic on hydralazine 50 q8 hours renal US noted, chronic renal disease, d/c iv fluid, current bun/creatinine is probably chronic off steroids, causing leukocytosis, might need peripheral blood test increase coreg repeat cxr and bnp today Subjective ROS Limited/Unobtainable: No Constitutional: Reports: no symptoms HEENT: Repors: no symptoms Respiratory: Reports: no symptoms Allergies: Coded Allergies: No Known Allergies (Unverified , 12/23/11) Objective Last 24 Hour Vital Signs Date Time Temp Pulse Resp B/P (MAP) Pulse Ox O2 Delivery O2 Flow Rate FiO2 11/17/17 09:00 Nasal Cannula 2.0 11/17/17 08:39 111 145/99 11/17/17 08:39 111 145/99 11/17/17 08:00 97.2 111 20 145/99 (114) 98 97.2 11/17/17 08:00 104 11/17/17 05:51 99 153/122 (132) 11/17/17 05:51 153/122 11/17/17 05:50 153/122 11/17/17 04:00 117 11/17/17 04:00 97.9 107 20 156/109 (125) 99 97.9 11/17/17 00:19 178/116 11/17/17 00:00 98.1 103 20 178/123 (141) 99 98.1 11/17/17 00:00 100 11/16/17 22:26 103 178/116 (136) 11/16/17 21:40 180/116 11/16/17 21:40 180/116 11/16/17 21:38 106 180/116 (137) 11/16/17 21:00 Nasal Cannula 2.0 11/16/17 20:45 Room Air 21 11/16/17 20:45 97 Room Air 21 11/16/17 20:00 97.3 101 24 172/126 (141) 98 97.3 11/16/17 20:00 107 11/16/17 16:00 97 11/16/17 16:00 97.0 108 20 165/106 (125) 96 97.0 11/16/17 14:26 160/112 11/16/17 14:26 160/112 9/11/18 12:00 96.4 107 20 155/110 (125) 97 96.4 11/16/17 12:00 105 Intake and Output 11/16/17 11/17/17 19:00 07:00 Intake Total 820 ml 300 ml Output Total 700 ml Balance 120 ml 300 ml Intake Oral 820 ml Other 300 ml Output Urine Total 700 ml # Voids 3 General Appearance: WD/WN HEENT: normocephalic, atraumatic Respiratory/Chest: chest wall non-tender, lungs clear Cardiovascular: normal peripheral pulses, normal rate Abdomen: normal bowel sounds Genitourinary: normal external genitalia Skin: no rash Neurologic/Psychiatric: coagulating operator II-XII grossly normal Microbiology Date/Time Source Procedure Growth Status 11/15/17 07:32 Sputum Expectorated Gram Stain - Final Resulted 11/15/17 07:32 Sputum Culture - Preliminary Staphylococcus Aureus YEAST Usual Respiratory Julianna Resulted Laboratory Tests 11/17/17 06:25: White Blood Count 24.2*H, Red Blood Count 5.09, Hemoglobin 13.0L, Hematocrit 39.7L, Mean Corpuscular Volume 78L, Mean Corpuscular Hemoglobin 25.5L, Mean Corpuscular Hemoglobin Concent 32.6, Red Cell Distribution Width 14.7, Platelet Count 313, Mean Platelet Volume 8.1, Neutrophils (%) (Auto) , Lymphocytes (%) ( Auto) , Monocytes (%) (Auto) , Eosinophils (%) (Auto) , Basophils (%) (Auto) , Differential Total Cells Counted 100, Neutrophils % (Manual) 64, Lymphocytes % ( Manual) 25, Monocytes % (Manual) 9, Eosinophils % (Manual) 1, Basophils % ( Manual) 1, Band Neutrophils 0, Platelet Estimate Adequate, Platelet Morphology Normal, Red Blood Cell Morphology Normal, Anisocytosis 1+, Microcytosis 1+, Sodium Level 140, Potassium Level 3.1L, Chloride Level 103, Carbon Dioxide Level 28, Anion Gap 9, Blood Urea Nitrogen 40H, Creatinine 2.2H, Estimat Glomerular Filtration Rate 37.5, Glucose Level 105, Calcium Level 8.8 Current Medications Medications (Trade) Dose Ordered Sig/Kathleen Route PRN Reason Start Time Stop Time Status Last Admin Dose Admin Acetaminophen (Tylenol) 650 mg Q4H PRN ORAL Fever/Headache/Mild Pain 11/13/17 11:55 12/13/17 11:54 Albuterol/ Ipratropium (Albuterol/ Ipratropium) 3 ml Q4H PRN HHN dyspnea 11/13/17 11:30 11/18/17 11:29 11/15/17 13:50 Amlodipine Besylate (Norvasc) 10 mg DAILY ORAL 11/14/17 09:00 12/14/17 08:59 11/17/17 08:39 Carvedilol (Coreg) 3.125 mg EVERY 12 HOURS ORAL 11/17/17 09:00 12/17/17 08:59 11/17/17 08:39 Clonidine HCl (Catapres Tab) 0.1 mg Q8HR ORAL 11/13/17 14:00 12/13/17 13:59 11/17/17 05:51 Dextrose (Dextrose 50%) 25 ml STAT PRN IV Hypoglycemia 11/13/17 11:30 12/13/17 11:29 Dextrose (Dextrose 50%) 50 ml STAT PRN IV Hypoglycemia 11/13/17 11:30 12/13/17 11:29 Heparin Sodium (Porcine) (Heparin 5000 units/ml) 5,000 units EVERY 12 HOURS SUBQ 11/13/17 21:00 12/13/17 20:59 Hydralazine HCl (Apresoline) 20 mg Q4H PRN IV sbp more than 160 11/13/17 11:30 12/13/17 11:29 11/17/17 00:19 Hydralazine HCl (Apresoline) 50 mg Q8HR ORAL 11/16/17 14:00 12/16/17 13:59 11/17/17 05:50 Labetalol HCl (Normodyne) 20 mg Q1H PRN IV sbp more than 180 11/13/17 11:30 12/13/17 11:29 Lorazepam (Ativan 2mg/ml 1ml) 0.5 mg Q4H PRN IV For Anxiety 11/13/17 11:30 11/20/17 11:29 Morphine Sulfate (Morphine Sulfate) 2 mg Q4H PRN IVP severe pain 7-10 11/13/17 11:30 11/20/17 11:29 11/13/17 14:03 Nicotine (Nicoderm) 1 patch Q24H TDERMAL 11/16/17 15:45 12/16/17 15:44 11/16/17 16:59 Nitroglycerin (Ntg) 0.4 mg Q5M X 3 DOSES PRN SL Prn Chest Pain 11/13/17 11:30 12/13/17 11:29 Ondansetron HCl (Zofran) 4 mg Q6H PRN IVP Nausea & Vomiting 11/13/17 11:30 12/13/17 11:29 Potassium Chloride (K-Dur) 40 meq ONCE ORAL 11/17/17 11:00 11/17/17 12:00 Promethazine HCl/ Codeine (Phenergan with Codeine) 5 ml Q6H PRN ORAL cough 11/13/17 11:30 12/13/17 11:29 Temazepam (Restoril) 15 mg HSPRN PRN ORAL Insomnia 11/13/17 11:30 11/20/17 11:29 Theophylline (Rosendo-Dur) 100 mg EVERY 12 HOURS ORAL 11/13/17 21:00 12/13/17 20:59 11/17/17 08:39 Jason Astorga MD Nov 17, 2017 10:47
--- NOTE | 2017-11-17 14:12 | General Progress Note ---
Assessment/Plan Problem List: (1) CKD (chronic kidney disease) ICD Codes: N18.9 - Chronic kidney disease, unspecified SNOMED: 553170636 Qualifiers: Qualified Codes: N18.9 - Chronic kidney disease, unspecified (2) Malignant hypertension ICD Codes: I10 - Essential (primary) hypertension SNOMED: 45222745 Status: stable, progressing Assessment/Plan bp control pain control neph f/u cbc bmp am dc plan if cardio clear Subjective Constitutional: Reports: weakness Allergies: Coded Allergies: No Known Allergies (Unverified , 12/23/11) All Systems: reviewed and negative except above Subjective calm in bed Objective Last 24 Hour Vital Signs Date Time Temp Pulse Resp B/P (MAP) Pulse Ox O2 Delivery O2 Flow Rate FiO2 11/17/17 12:00 102 11/17/17 12:00 96.4 104 20 143/102 (116) 98 96.4 11/17/17 09:00 Nasal Cannula 2.0 11/17/17 08:39 111 145/99 11/17/17 08:39 111 145/99 11/17/17 08:00 97.2 111 20 145/99 (114) 98 97.2 11/17/17 08:00 104 11/17/17 07:00 98 Room Air 21 11/17/17 07:00 Room Air 21 11/17/17 05:51 99 153/122 (132) 11/17/17 05:51 153/122 11/17/17 05:50 153/122 11/17/17 04:00 117 11/17/17 04:00 97.9 107 20 156/109 (125) 99 97.9 11/17/17 00:19 178/116 11/17/17 00:00 98.1 103 20 178/123 (141) 99 98.1 11/17/17 00:00 100 11/16/17 22:26 103 178/116 (136) 11/16/17 21:40 180/116 11/16/17 21:40 180/116 11/16/17 21:38 106 180/116 (137) 11/16/17 21:00 Nasal Cannula 2.0 11/16/17 20:45 Room Air 21 11/16/17 20:45 97 Room Air 21 11/16/17 20:00 97.3 101 24 172/126 (141) 98 97.3 11/16/17 20:00 107 11/16/17 16:00 97 11/16/17 16:00 97.0 108 20 165/106 (125) 96 97.0 11/16/17 14:26 160/112 11/16/17 14:26 160/112 Intake and Output 11/16/17 11/17/17 19:00 07:00 Intake Total 820 ml 300 ml Output Total 700 ml Balance 120 ml 300 ml Intake Oral 820 ml Other 300 ml Output Urine Total 700 ml # Voids 3 Laboratory Tests 11/17/17 06:25: White Blood Count 24.2*H, Red Blood Count 5.09, Hemoglobin 13.0L, Hematocrit 39.7L, Mean Corpuscular Volume 78L, Mean Corpuscular Hemoglobin 25.5L, Mean Corpuscular Hemoglobin Concent 32.6, Red Cell Distribution Width 14.7, Platelet Count 313, Mean Platelet Volume 8.1, Neutrophils (%) (Auto) , Lymphocytes (%) ( Auto) , Monocytes (%) (Auto) , Eosinophils (%) (Auto) , Basophils (%) (Auto) , Differential Total Cells Counted 100, Neutrophils % (Manual) 64, Lymphocytes % ( Manual) 25, Monocytes % (Manual) 9, Eosinophils % (Manual) 1, Basophils % ( Manual) 1, Band Neutrophils 0, Platelet Estimate Adequate, Platelet Morphology Normal, Red Blood Cell Morphology Normal, Anisocytosis 1+, Microcytosis 1+, Sodium Level 140, Potassium Level 3.1L, Chloride Level 103, Carbon Dioxide Level 28, Anion Gap 9, Blood Urea Nitrogen 40H, Creatinine 2.2H, Estimat Glomerular Filtration Rate 37.5, Glucose Level 105, Calcium Level 8.8 Height (Feet): 5 Height (Inches): 7.00 Weight (Pounds): 192 General Appearance: alert EENT: normal ENT inspection Neck: normal alignment Cardiovascular: normal peripheral pulses, normal rate, regular rhythm Respiratory/Chest: chest wall non-tender, lungs clear, normal breath sounds Abdomen: normal bowel sounds, non tender, soft Extremities: normal inspection Edema: no edema noted Arm (L), no edema noted Arm (R), no edema noted Leg (L), no edema noted Leg (R), no edema noted Pedal (L), no edema noted Pedal (R), no edema noted Generalized Neurologic: responsive, motor weakness Skin: normal pigmentation, warm/dry Jossue Mane DO Nov 17, 2017 14:12
[2017-11-17] MEDS: Carvedilol 12.5mg tab ORAL SCH (18:16)
[2017-11-17] MEDS ORDERED: Carvedilol 6.25mg Tab ORAL SCH (21:00)
[2017-11-18] VITALS: BP 154/97
[2017-11-18 04:00] VITALS: BP 155/118
[2017-11-18] MEDS: HydrALAZINE 50mg tab ORAL SCH ×2 (06:00→14:30)
[2017-11-18 08:00] VITALS: BP 151/108
[2017-11-18] MEDS: Heparin 5000 units/ml inj SUBQ SCH (09:00)
[2017-11-18] MEDS: Theophylline ER 100mg ORAL SCH (09:03)
[2017-11-18] MEDS: Carvedilol 12.5mg tab ORAL SCH (09:03)
--- NOTE | 2017-11-18 09:11 | Infectious Diseases Prog Note ---
Assessment/Plan Assessment/Plan 57 yo male with PMHx of COPD, HTN and CKD who presented to the ED on 11/13/17 with SOB and high blood pressure. SOB resolved 2L NC and RA intermittently Likely COPD exacerbation vs CAP Afebrile 11/15 Sputum Cx NF primarily some yeast and staph Leukocytosis Reactive from Steroids Clinically doing well HTN CKD P: No sign of active infection. Agree with stopping abx as leukocytosis likely reactive 2/2 steroids Continue to monitor off abx 11/16 SP Zosyn 4 days Monitor CBC and Temps Supportive care We will continue to follow the patient during this hospitalization. Subjective Allergies: Coded Allergies: No Known Allergies (Unverified , 12/23/11) Subjective Patient reports feeling well today Denies SOB No N/V/D or fevers Objective Vital Signs Last 24 Hour Vital Signs Date Time Temp Pulse Resp B/P (MAP) Pulse Ox O2 Delivery O2 Flow Rate FiO2 11/18/17 09:03 100 151/108 11/18/17 09:03 100 151/108 11/18/17 08:00 96.6 100 20 151/108 (122) 96 96.6 11/18/17 06:00 154/97 11/18/17 06:00 154/97 11/18/17 04:00 97.9 92 24 155/118 (130) 98 97.9 11/18/17 04:00 94 11/18/17 00:00 94 11/18/17 00:00 97.7 95 22 154/97 (116) 95 97.7 11/17/17 21:12 148/110 11/17/17 21:12 148/110 11/17/17 21:00 Nasal Cannula 2.0 11/17/17 20:00 98 11/17/17 20:00 97.0 99 22 148/110 (123) 94 97.0 11/17/17 19:30 94 Room Air 21 11/17/17 19:30 Room Air 21 11/17/17 18:16 100 154/115 11/17/17 16:00 100 11/17/17 16:00 96.4 101 20 154/115 (128) 97 96.4 11/17/17 14:45 143/102 11/17/17 14:45 143/102 11/17/17 12:00 102 11/17/17 12:00 96.4 104 20 143/102 (116) 98 96.4 Height (Feet): 5 Height (Inches): 7.00 Weight (Pounds): 192 Objective Gen: NAD, well appearing, alert, On RA HEENT: NCAT, MMM, EOMI, no scleral icterus LUNGS: CTAB, No W/C, No Accessory muscle use CARDS: RRR, S1, S2, No M/R/G, ABD: Soft, NT, ND, No R/G, + BS Ext: C/C/E, Pulses 2+ B/L (DP, Rad): NEURO: A/O x 4, Strength and Sensation Grossly intact Current Medications Medications (Trade) Dose Ordered Sig/Kathleen Route PRN Reason Start Time Stop Time Status Last Admin Dose Admin Acetaminophen (Tylenol) 650 mg Q4H PRN ORAL Fever/Headache/Mild Pain 11/13/17 11:55 12/13/17 11:54 Albuterol/ Ipratropium (Albuterol/ Ipratropium) 3 ml Q4H PRN HHN dyspnea 11/13/17 11:30 11/18/17 11:29 11/15/17 13:50 Amlodipine Besylate (Norvasc) 10 mg DAILY ORAL 11/14/17 09:00 12/14/17 08:59 11/18/17 09:03 Carvedilol (Coreg) 12.5 mg EVERY 12 HOURS ORAL 11/17/17 19:00 12/17/17 18:59 11/18/17 09:03 Clonidine HCl (Catapres Tab) 0.1 mg Q8HR ORAL 11/13/17 14:00 12/13/17 13:59 11/18/17 06:00 Dextrose (Dextrose 50%) 25 ml STAT PRN IV Hypoglycemia 11/13/17 11:30 12/13/17 11:29 Dextrose (Dextrose 50%) 50 ml STAT PRN IV Hypoglycemia 11/13/17 11:30 12/13/17 11:29 Heparin Sodium (Porcine) (Heparin 5000 units/ml) 5,000 units EVERY 12 HOURS SUBQ 11/13/17 21:00 12/13/17 20:59 Hydralazine HCl (Apresoline) 20 mg Q4H PRN IV sbp more than 160 11/13/17 11:30 12/13/17 11:29 11/17/17 00:19 Hydralazine HCl (Apresoline) 50 mg Q8HR ORAL 11/16/17 14:00 12/16/17 13:59 11/18/17 06:00 Labetalol HCl (Normodyne) 20 mg Q1H PRN IV sbp more than 180 11/13/17 11:30 12/13/17 11:29 Lorazepam (Ativan 2mg/ml 1ml) 0.5 mg Q4H PRN IV For Anxiety 11/13/17 11:30 11/20/17 11:29 Morphine Sulfate (Morphine Sulfate) 2 mg Q4H PRN IVP severe pain 7-10 11/13/17 11:30 11/20/17 11:29 11/13/17 14:03 Nicotine (Nicoderm) 1 patch Q24H TDERMAL 11/16/17 15:45 12/16/17 15:44 11/17/17 14:46 Nitroglycerin (Ntg) 0.4 mg Q5M X 3 DOSES PRN SL Prn Chest Pain 11/13/17 11:30 12/13/17 11:29 Ondansetron HCl (Zofran) 4 mg Q6H PRN IVP Nausea & Vomiting 11/13/17 11:30 12/13/17 11:29 Promethazine HCl/ Codeine (Phenergan with Codeine) 5 ml Q6H PRN ORAL cough 11/13/17 11:30 12/13/17 11:29 Temazepam (Restoril) 15 mg HSPRN PRN ORAL Insomnia 11/13/17 11:30 11/20/17 11:29 Theophylline (Rosendo-Dur) 100 mg EVERY 12 HOURS ORAL 11/13/17 21:00 12/13/17 20:59 11/18/17 09:03 Sandoval Macedo MD Nov 18, 2017 09:11
[2017-11-18] MEDS ORDERED: APRESOLINE50 MG ORAL (11:17)
[2017-11-18] MEDS ORDERED: COREG25 MG ORAL (11:19)
[2017-11-18] MEDS ORDERED: Carvedilol 12.5mg tab ORAL SCH (11:30)
[2017-11-18] MEDS ORDERED: HydrALAZINE 50mg tab ORAL ONE (11:30)
[2017-11-18] MEDS ORDERED: HydrALAZINE 50mg tab ORAL SCH (11:30)
[2017-11-18 12:00] VITALS: BP 132/87
--- NOTE | 2017-11-18 12:43 | Nephrology Progress Note ---
Assessment/Plan Assessment 1.RASHEL 2.CKD 3.Hypokalemia 4.COPD 5.HTN Plan increase hydralazine to 75 mg tid may titrate to 100 mg q8 continue Norvasc 10 mg no need for Lasix avoid NSAID Subjective Constitutional: Reports: no symptoms HEENT: Reports: no symptoms Genitourinary: Reports: no symptoms Neurologic/Psychiatric: Reports: no symptoms Subjective alert and awake Objective Objective Last 24 Hour Vital Signs Date Time Temp Pulse Resp B/P (MAP) Pulse Ox O2 Delivery O2 Flow Rate FiO2 11/18/17 11:41 151/108 11/18/17 11:41 100 151/108 11/18/17 09:03 100 151/108 11/18/17 09:03 100 151/108 11/18/17 09:00 Nasal Cannula 2.0 11/18/17 08:00 96.6 100 20 151/108 (122) 96 96.6 11/18/17 06:00 154/97 11/18/17 06:00 154/97 11/18/17 04:00 97.9 92 24 155/118 (130) 98 97.9 11/18/17 04:00 94 11/18/17 00:00 94 11/18/17 00:00 97.7 95 22 154/97 (116) 95 97.7 11/17/17 21:12 148/110 11/17/17 21:12 148/110 11/17/17 21:00 Nasal Cannula 2.0 11/17/17 20:00 98 11/17/17 20:00 97.0 99 22 148/110 (123) 94 97.0 11/17/17 19:30 94 Room Air 21 11/17/17 19:30 Room Air 21 11/17/17 18:16 100 154/115 11/17/17 16:00 100 11/17/17 16:00 96.4 101 20 154/115 (128) 97 96.4 11/17/17 14:45 143/102 11/17/17 14:45 143/102 Intake and Output 11/17/17 11/18/17 19:00 07:00 Intake Total 600 ml Balance 600 ml Intake Oral 600 ml # Voids 1 2 Height (Feet): 5 Height (Inches): 7.00 Weight (Pounds): 192 Objective HEENT: normocephalic, atraumatic, PERRL, EOMI, supple, no JVD Neck: non-tender, supple Respiratory/Chest: chest wall non-tender, no accessory muscle use, decreased breath sounds Cardiovascular/Chest: normal peripheral pulses, normal rate - SR, no JVD Abdomen: normal bowel sounds, soft Extremities: no edema,clubbing or cyanosis Staci Blum MD Nov 18, 2017 12:43
--- NOTE | 2017-11-18 12:54 | General Progress Note ---
Assessment/Plan Problem List: (1) CKD (chronic kidney disease) ICD Codes: N18.9 - Chronic kidney disease, unspecified SNOMED: 055308665 Qualifiers: Qualified Codes: N18.9 - Chronic kidney disease, unspecified (2) Malignant hypertension ICD Codes: I10 - Essential (primary) hypertension SNOMED: 73684620 Status: stable, progressing Assessment/Plan bp control pain control neph f/u cbc bmp am dc plan if cardio clear Subjective Constitutional: Reports: weakness Allergies: Coded Allergies: No Known Allergies (Unverified , 12/23/11) All Systems: reviewed and negative except above Subjective calm in bed Objective Last 24 Hour Vital Signs Date Time Temp Pulse Resp B/P (MAP) Pulse Ox O2 Delivery O2 Flow Rate FiO2 11/18/17 11:41 151/108 11/18/17 11:41 100 151/108 11/18/17 09:03 100 151/108 11/18/17 09:03 100 151/108 11/18/17 09:00 Nasal Cannula 2.0 11/18/17 08:00 96.6 100 20 151/108 (122) 96 96.6 11/18/17 06:00 154/97 11/18/17 06:00 154/97 11/18/17 04:00 97.9 92 24 155/118 (130) 98 97.9 11/18/17 04:00 94 11/18/17 00:00 94 11/18/17 00:00 97.7 95 22 154/97 (116) 95 97.7 11/17/17 21:12 148/110 11/17/17 21:12 148/110 11/17/17 21:00 Nasal Cannula 2.0 11/17/17 20:00 98 11/17/17 20:00 97.0 99 22 148/110 (123) 94 97.0 11/17/17 19:30 94 Room Air 21 11/17/17 19:30 Room Air 21 11/17/17 18:16 100 154/115 11/17/17 16:00 100 11/17/17 16:00 96.4 101 20 154/115 (128) 97 96.4 11/17/17 14:45 143/102 11/17/17 14:45 143/102 Intake and Output 11/17/17 11/18/17 19:00 07:00 Intake Total 600 ml Balance 600 ml Intake Oral 600 ml # Voids 1 2 Height (Feet): 5 Height (Inches): 7.00 Weight (Pounds): 192 General Appearance: alert EENT: normal ENT inspection Neck: normal alignment Cardiovascular: normal peripheral pulses, normal rate, regular rhythm Respiratory/Chest: chest wall non-tender, lungs clear, normal breath sounds Abdomen: normal bowel sounds, non tender, soft Extremities: normal inspection Edema: no edema noted Arm (L), no edema noted Arm (R), no edema noted Leg (L), no edema noted Leg (R), no edema noted Pedal (L), no edema noted Pedal (R), no edema noted Generalized Neurologic: responsive, motor weakness Skin: normal pigmentation, warm/dry Jossue Mane DO Nov 18, 2017 12:54
[2017-11-18 14:30] VITALS: BP 157/116
[2017-11-18] MEDS ORDERED: COREG CR20 MG ORAL (15:07)
[2017-11-18] MEDS ORDERED: CLONIDINE HCL0.1 MG PO (15:08)
[2017-11-18] MEDS ORDERED: APRESOLINE100 MG ORAL (15:08)
[2017-11-18] MEDS ORDERED: D5 1/2NS 1000ml IV ONE (15:29)
--- NOTE | 2017-11-18 19:30 | Cardiology Progress Note ---
Assessment/Plan Assessment/Plan 1. HTN emergency, continue with amlodipine and clonidine, carvedilol was increased to 25mg bid, hydralazine 50mg tid started. 2. Hypertensive heart disease 3. CKD with RASHEL, creatinine down to 2.2 4. Large right lung bullae formation. 5. COPD 6. ST improved. Subjective Subjective Sinus rhythm at 95. Objective Last 24 Hour Vital Signs Date Time Temp Pulse Resp B/P (MAP) Pulse Ox O2 Delivery O2 Flow Rate FiO2 11/18/17 14:30 157/116 11/18/17 14:30 157/116 11/18/17 12:00 96.4 95 20 132/87 (102) 96 96.4 11/18/17 11:41 151/108 11/18/17 11:41 100 151/108 11/18/17 11:39 97 11/18/17 10:15 96 21 Room Air 21 11/18/17 10:15 Room Air 21 11/18/17 10:15 96 Room Air 21 11/18/17 09:03 100 151/108 11/18/17 09:03 100 151/108 11/18/17 09:00 Nasal Cannula 2.0 11/18/17 08:00 96.6 100 20 151/108 (122) 96 96.6 11/18/17 07:35 102 11/18/17 06:00 154/97 11/18/17 06:00 154/97 11/18/17 04:00 97.9 92 24 155/118 (130) 98 97.9 11/18/17 04:00 94 11/18/17 00:00 94 11/18/17 00:00 97.7 95 22 154/97 (116) 95 97.7 11/17/17 21:12 148/110 11/17/17 21:12 148/110 11/17/17 21:00 Nasal Cannula 2.0 11/17/17 20:00 98 11/17/17 20:00 97.0 99 22 148/110 (123) 94 97.0 11/17/17 19:30 94 Room Air 21 11/17/17 19:30 Room Air 21 Intake and Output 11/17/17 11/18/17 19:00 07:00 Intake Total 600 ml Balance 600 ml Intake Oral 600 ml # Voids 1 2 2D Echo: LVEF 55%, Mild LVH, Mold MR, RVSP within normal limits Objective HEENT: normocephalic, atraumatic, bilateral eye PERRL, bilateral eye EOMI Neck: No JVD, no carotid bruit. Respiratory: lungs clear, normal breath sounds Cardiovascular: Normal S1S2, regular rate, rhythm, no murmurs, gallops or rubs. Gastrointestinal: normal bowel sounds, non tender, no mass, no organomegaly, no bruit, non-distended Musculoskeletal: No edema, clubbing or cyanosis. Chang Peterson MD Nov 18, 2017 19:30
[2017-11-18] MEDS ORDERED: Carvedilol 25mg Tab ORAL SCH (21:00)
--- NOTE | 2017-11-19 11:09 | Discharge Summary ---
Discharge Summary Discharge Summary _ DATE OF ADMISSION: 11/14/2017 DATE OF DISCHARGE: 11/18/2017 CONSULTANTS: Dr. Chang Macedo BRIEF HOSPITAL COURSE: Patient is a 57-year-old male, who lives at home presented to ED due to 2 weeks increased shortness of breath that has been intermittent. Two days prior to admission, he ran out of blood pressure medications. He had headache and shortness of breath. He is a current smoker. He has history of hypertension, COPD and CKD. On evaluation at ED, blood pressure was elevated 202/133. Blood work showed WBC of 11, hemoglobin 14, hematocrit 42. Potassium was 2.8. Creatinine 2.7, BUN 27. Troponin was negative. BNP 2637. Urine toxicology was negative. EKG showed normal sinus rhythm. Chest x-ray showed right upper lobe bleb. He was admitted for evaluation of dyspnea, possible COPD exacerbation, malignant hypertension and CHF. He was admitted to telemetry floor. He was placed on hydralazine and IV labetalol prn. He was given amlodipine. He was given gentle IV hydration. Renal function monitored. He was given potassium replacement. He was started on IV steroids and Zosyn. He had an echocardiogram that showed normal left ventricular systolic function with LVEF 60-65%, mild left ventricular hypertrophy, small posterior pericardial effusion, mild mitral regurgitation and right ventricular systolic pressure 60 mmHg. He continued to be tachycardic. He was started on low-dose beta sheri. Kidney functions were elevated. Lisinopril was placed on hold. Renal ultrasound showed echogenic kidneys, consistent with chronic medical renal disease. Sputum culture showed normal rosa, yeast and MRSA. Patient received 4 days of Zosyn. Patient had leukocytosis likely reactive secondary to steroid use. There was no active signs of infection. Antibiotics were discontinued. Antihypertensives were titrated. Carvedilol was increased to 25 mg twice a day. Hydralazine was increased to 50 mg 3 times a day. He was breathing better and was saturating well on room air. He was then discharged home, was advised to follow-up as outpatient. FINAL DIAGNOSES: Hypertensive emergency Hypertensive heart disease Chronic kidney disease with acute kidney injury Large right bullae lung formation Acute COPD exacerbation Sinus tachycardia DISPOSITION: Patient was discharged home. DISCHARGE MEDICATIONS: Refer to Discharge Medication List. DISCHARGE INSTRUCTIONS: Follow up with PCP in a week. Followed up with truck bracer and deposit clerk in a week. I have been assigned to dictate discharge summary on this account, and I was not involved in the patient's management. Alicia Perry NP Nov 19, 2017 11:09
== END 2017-11-18 15:30 | disposition home or self-care (01) | DRG 199 ==
LOC: EMR 05:24 → 2E 07:00 → EDBEDREQ 08:09
DX: I16.1 Hypertensive emergency (principal); N17.9 Acute kidney failure, unspecified; I13.10 Hypertensive heart and chronic kidney disease without heart failure, with stage 1 through stage 4 chronic kidney disease, or unspecified chronic kidney disease; J44.1 Chronic obstructive pulmonary disease with (acute) exacerbation; N18.9 Chronic kidney disease, unspecified; R00.0 Tachycardia, unspecified; N40.0 Benign prostatic hyperplasia without lower urinary tract symptoms; F17.200 Nicotine dependence, unspecified, uncomplicated; I34.0 Nonrheumatic mitral (valve) insufficiency
CPT/HCPCS: 36415; 71045; 76770; 80048; 80053; 80307; 81001; 81003; 82043; 82044; 82550; 82553; 82570; 83880; 84133; 84300; 84484; 84550; 85007; 85025; 85060; 85610; 85730; 87070; 87181; 87205; 89050; 93005; 93306; 94640; 94664; 94760; 96365; 96375; 99291; J7620; J8499

== ENCOUNTER 2017-11-26 04:26 | Emergency (ER) | payer MEDICAID ==
[~2017-11-26] VITALS: Ht 172.7 cm; Wt 86.2 kg
[~2017-11-26 04:26] MED LIST changes: +APRESOLINE100 MG ORAL; +APRESOLINE50 MG ORAL; +CLONIDINE HCL0.1 MG PO; +COREG CR20 MG ORAL; +COREG25 MG ORAL
[2017-11-26 04:37] VITALS: BP 153/98
[2017-11-26] MEDS ORDERED: Albuterol/Ipratropium 3ml neb HHN ONE ×2 (05:00→06:45)
[2017-11-26] MEDS ORDERED: Solu-MEDROL 125mg Inj IVP ONE (05:15)
[2017-11-26 06:02] LABS: ANION GAP 10 mmol/L (5-15); BLOOD UREA NITROGEN 28 mg/dL (7-18); CALCIUM 8.7 MG/DL (8.5-10.1); CARBON DIOXIDE 26 MMOL/L (21-32); CHLORIDE 106 MMOL/L (98-107); CREATININE 2.7 MG/DL (0.55-1.30); POTASSIUM 3.3 MMOL/L (3.5-5.1); SODIUM 142 MMOL/L (136-145)
[2017-11-26] MEDS ORDERED: PREDNISONE20 MG ORAL (06:04)
[2017-11-26] MEDS ORDERED: ALBUTEROL SULF8.5 GM INH (06:04)
[2017-11-26 06:05] LABS: ALANINE AMINOTRANSFERASE 87 U/L (12-78); ALBUMIN 2.7 G/DL (3.4-5.0); ALBUMIN/GLOBULIN RATIO 0.6 (1.0-2.7); ALKALINE PHOSPHATASE 62 U/L (46-116); ASPARTATE AMINO TRANSFERASE 25 U/L (15-37); BILIRUBIN,TOTAL 0.3 MG/DL (0.2-1.0); HEMATOCRIT 34.5 % (42.0-52.0); HEMOGLOBIN 11.1 G/DL (14.2-18.0); LYMPHOCYTES % (AUTO) 19.1 % (20.0-45.0); MEAN CORPUSCULAR VOLUME 78 FL (80-99); MONOCYTES % (AUTO) 10.8 % (1.0-10.0); NEUTROPHILS % (AUTO) 66.1 % (45.0-75.0); PLATELET COUNT 292 K/UL (150-450); RED BLOOD COUNT 4.42 M/UL (4.70-6.10); RED CELL DISTRIBUTION WIDTH 14.2 % (11.6-14.8); WHITE BLOOD COUNT 13.5 K/UL (4.8-10.8)
[2017-11-26 06:43] VITALS: BP 142/94
[2017-11-26 06:44] VITALS: BP 142/94
--- NOTE | 2017-11-26 06:50 | Emergency Room Report ---
History of Present Illness General Chief Complaint: Dyspnea/Respdistress Source: Patient Present Illness HPI Patient 57 -year-old male who presented after increased difficult to breathing. Patient gradual onset of symptoms. Patient had prior history of COPD with recent hospitalization. He reports having increased nonproductive cough. He reports having quit smoking several months ago. He denies any fever. He is not currently on antibiotics. The patient had run out of his inhaler. Allergies: Coded Allergies: No Known Allergies (Unverified , 11/26/17) Patient History Past Medical History: see triage record Reviewed Nursing Documentation: PMH: Agreed; PSxH: Agreed Nursing Documentation-PM Past Medical History: No History, Except For Hx Cardiac Problems: No Hx Hypertension: Yes Hx Pacemaker: No Hx Asthma: No Hx COPD: Yes Hx Diabetes: No Hx Cancer: No Hx Gastrointestinal Problems: No Hx Dialysis: No Hx Neurological Problems: No Hx Cerebrovascular Accident: No Hx Seizures: No Review of Systems All Other Systems: negative except mentioned in HPI Physical Exam Vital Signs Date Time Temp Pulse Resp B/P (MAP) Pulse Ox O2 Delivery O2 Flow Rate FiO2 11/26/17 04:33 97.9 81 16 153/98 97 97.9 11/26/17 04:37 Room Air 11/26/17 05:02 36 11/26/17 05:02 2.0 Sp02 EP Interpretation: reviewed, normal General Appearance: normal inspection, alert, GCS 15, obese, Chronically Ill Head: atraumatic ENT: normal ENT inspection, hearing grossly normal, normal voice Neck: normal inspection, full range of motion, supple, no bony tend Respiratory: wheezing Cardiovascular #1: regular rate, rhythm, no edema Gastrointestinal: normal inspection, normal bowel sounds, non tender, soft, no guarding, no hernia Genitourinary: no CVA tenderness Musculoskeletal: normal inspection, back normal, normal range of motion Neurologic: normal inspection, alert, oriented x3, responsive, furnace setter III-XII nml as tested, speech normal Psychiatric: normal inspection, judgement/insight normal, mood/affect normal Skin: normal inspection, normal color, no rash Medical Decision Making Diagnostic Impression: Primary Impression: COPD exacerbation ER Course Patient presented for shortness of breath and cough. Differential included but was not limited to anemia, pneumonia, pneumothorax, myocardial infarction, pericardial effusion, congestive heart failure, acidosis. Chest x-ray one view interpreted by me showed large bullae. Without any definite infiltrate. There is no pneumothorax.The patient was noted to have mildly elevated white count which is markedly improved from patient's recent laboratory testing.The patient was given IV steroids as well as breathing treatments with marked improvement in his respiratory status. The patient was given prescription for oral steroids as well as albuterol. Patient is advised to follow-up with his caser shoe parts in one to 2 days for reexamination treatment.. Patient is advised to return if any worsening condition or if any changes in status that are concerning. This report is dictated with [employer] costume director software which may occasionally lead to discrepancies related to use of this software. Labs Test 11/26/17 05:19 White Blood Count 13.5 K/UL (4.8-10.8) Red Blood Count 4.42 M/UL (4.70-6.10) Hemoglobin 11.1 G/DL (14.2-18.0) Hematocrit 34.5 % (42.0-52.0) Mean Corpuscular Volume 78 FL (80-99) Mean Corpuscular Hemoglobin 25.1 PG (27.0-31.0) Mean Corpuscular Hemoglobin Concent 32.1 G/DL (32.0-36.0) Red Cell Distribution Width 14.2 % (11.6-14.8) Platelet Count 292 K/UL (150-450) Mean Platelet Volume 7.3 FL (6.5-10.1) Neutrophils (%) (Auto) 66.1 % (45.0-75.0) Lymphocytes (%) (Auto) 19.1 % (20.0-45.0) Monocytes (%) (Auto) 10.8 % (1.0-10.0) Eosinophils (%) (Auto) 3.0 % (0.0-3.0) Basophils (%) (Auto) 1.0 % (0.0-2.0) Prothrombin Time 11.0 SEC (9.30-11.50) Prothromb Time International Ratio 1.0 (0.9-1.1) Activated Partial Thromboplast Time 29 SEC (23-33) Sodium Level 142 MMOL/L (136-145) Potassium Level 3.3 MMOL/L (3.5-5.1) Chloride Level 106 MMOL/L (98-107) Carbon Dioxide Level 26 MMOL/L (21-32) Anion Gap 10 mmol/L (5-15) Blood Urea Nitrogen 28 mg/dL (7-18) Creatinine 2.7 MG/DL (0.55-1.30) Estimat Glomerular Filtration Rate 29.6 mL/min (>60) Glucose Level 110 MG/DL (74-106) Calcium Level 8.7 MG/DL (8.5-10.1) Total Bilirubin 0.3 MG/DL (0.2-1.0) Aspartate Amino Transf (AST/SGOT) 25 U/L (15-37) Alanine Aminotransferase (ALT/SGPT) 87 U/L (12-78) Alkaline Phosphatase 62 U/L (46-116) Troponin I 0.019 ng/mL (0.000-0.056) Total Protein 6.9 G/DL (6.4-8.2) Albumin 2.7 G/DL (3.4-5.0) Globulin 4.2 g/dL Albumin/Globulin Ratio 0.6 (1.0-2.7) Last Vital Signs Date Time Temp Pulse Resp B/P (MAP) Pulse Ox O2 Delivery O2 Flow Rate FiO2 11/26/17 06:44 97.9 79 31 142/94 97 Nasal Cannula 2.0 28 97.9 Status: improved Disposition: HOME, SELF-CARE Condition: Stable Scripts Prednisone* (PREDNISONE*) 20 Mg Tablet 40 MG ORAL DAILY, #10 TAB Prov: Tanner Lane MD 11/26/17 Albuterol Sulfate* (ALBUTEROL SULFATE MDI*) 8.5 Gm Hfa.aer.ad 2 PUFF INH Q4H PRN for cough/wheezing, #1 EA 0 Refills Prov: Tanner Lane MD 11/26/17 Patient Instructions: Chronic Obstructive Pulmonary Disease Exacerbation Tanner Lane MD Nov 26, 2017 06:50
--- NOTE | 2017-11-26 10:34 | Diagnostic Imaging Report ---
Indication: Dyspnea Comparison: 11/16/2017 A single view chest radiograph was obtained. Findings: Groundglass opacities, reticular interstitial densities and cardiomegaly demonstrated consistent with CHF. Large bulla noted within the right upper lobe again noted unchanged. IMPRESSION: Pulmonary edema suspected.
--- NOTE | 2017-11-26 15:01 | Cardiology Report ---
APPROVED REPORT EKG Measurement Heart [id number] Normal sinus rhythm Possible Left atrial enlargement Nonspecific T wave abnormality Prolonged QT Abnormal ECG
== END 2017-11-26 06:45 | disposition home or self-care (01) ==
LOC: EMR 04:59
DX: J44.1 Chronic obstructive pulmonary disease with (acute) exacerbation (principal); I10 Essential (primary) hypertension
CPT/HCPCS: 36415; 71045; 80053; 84484; 85025; 85610; 85730; 93005; 94640; 94664; 96374; 99284; J2930; J7620